=== PATIENT | female | born 1940 | race Caucasian/White ===

== ENCOUNTER → 2023-12-26 08:50 | Outpatient (REF) | payer MEDICARE, SELFPAY | LOC: RAD 08:50 | PROVIDERS: ATTENDING PHYSICIAN Surgery Vascular Surgery; FAMILY PHYSICIAN Family Medicine | DX: I73.9 Peripheral vascular disease, unspecified (principal) | CPT/HCPCS: 93923; 93978 ==

== ENCOUNTER → 2024-01-21 13:41 | Outpatient (REF) | payer MEDICARE, SELFPAY | LOC: HWRAD 13:41 | PROVIDERS: ATTENDING PHYSICIAN Nurse Practitioner; FAMILY PHYSICIAN Family Medicine | DX: N39.0 Urinary tract infection, site not specified (principal) | CPT/HCPCS: 76770; 76856 ==

== ENCOUNTER 2024-06-15 06:18 | Day surgery (SDC) | payer MEDICARE, SELFPAY ==
[2024-06-08 08:26] VITALS: BMI 28.7
[2024-06-08 08:50] LABS: Hematocrit 40.5 % (37.0-47.0); Mean Corp Hgb Conc. 32.1 g/dL (33.0-37.0); Mean Corpuscular Hgb 27.3 pg (27.0-31.0); Mean Corpuscular Volume 85.1 fL (81.0-99.0); Mean Platelet Volume 10.2 fL (7.4-10.4); Platelet Count 207 10^3/uL (130-400); Red Blood Cell Count 4.76 10^6/uL (4.20-5.40); Red Cell Dist. Width 15.9 % (11.5-14.5); White Blood Cell Count 11.1 10^3/uL (4.8-10.8)
[2024-06-08 09:26] LABS: Blood Urea Nitrogen 29 mg/dl (7-17); Calcium 9.3 mg/dl (8.4-10.2); Carbon Dioxide 31 mmol/L (22-30); Chloride 99 mmol/L (98-107); Estimated Creatinine Clearance 39 ml/min; Glucose 79 mg/dl (70-99); Potassium 4.4 mmol/L (3.5-5.1); Sodium 141 mmol/L (135-145)
--- NOTE | 2024-06-11 10:25 | PTCARENOTE ---
Patients 06/08 eGFR- 55.90- Luana @ Dr. Finley office notified
[2024-06-15] VITALS (10 sets, daily range): BP systolic 94–148; BP diastolic 39–59; BMI 28.7
[2024-06-15] MEDS: Pyridium 200 MG PO (06:08)
== END 2024-06-15 10:30 | disposition home or self-care (01) ==
LOC: SDS 06:18
PROVIDERS: ATTENDING PHYSICIAN Obstetrics & Gynecology; FAMILY PHYSICIAN Family Medicine
DX: N39.3 Stress incontinence (female) (male) (principal); N36.41 Hypermobility of urethra
CPT/HCPCS: 57288; 36415; 80048; 85027; 93005; C1771

== ENCOUNTER 2024-07-05 12:13 | Inpatient (IN) | payer MEDICARE, SELFPAY ==
[2024-07-05] VITALS (18 sets, daily range): BP systolic 101–141; BP diastolic 45–80; BMI 29.2
--- NOTE | 2024-07-05 08:46 | ED.GENMED ---
History of Present Illness
<Lissa Hays MD, Resident - Last Filed: 07/05/24 10:04>
General
Chief Complaint: Fall
Source: patient
Exam Limitations: none
Time Seen by Provider: 07/05/24 08:16
Nursing documentation reviewed up to this point in time: agreed with
Travel History
Have you traveled to any high risk areas for coronavirus over the past 14 days?: No
Have you had any contact with someone who has COVID-19?: No
History of Present Illness
History of Present Illness:
84-year-old female with past medical history significant for hypertension, hyperlipidemia, peripheral artery disease s/p PCI, stress incontinence s/p recent sling procedure done, interstitial cystitis and bladder prolapse presents to the ER s/p
mechanical fall. Patient woke up in the morning from her bed to go use the bathroom when she tripped and fell injuring the back of her head and right hip/thigh. She was not able to pull herself back up, and called her family for help. Currently
patient complains of severe right hip pain radiating into her groin, and inability to move her right leg. She denies any loss of consciousness or preceding symptoms, or did not have post ictal phase he was awake and alert during the entire fall and
after the fall. She denies having any chest pain, palpitations, shortness of breath, loss of consciousness, orthopnea, PND, bowel or bladder incontinence episode.
If applicable-neuro sx onset
Onset of symptoms known: No
Time pt last seen normal is known: No
Past History
<Lissa Hays MD, Resident - Last Filed: 07/05/24 10:04>
Past History
ED Past Medical History: HTN, Hypercholesterolemia and Other (PAD, stress incontinence, bladder prolapse, interstitial cystitis, anxiety, cataracts.)
ED Past Surgical History: Other (Left common iliac PCI 07/2017, tonsillectomy-194, left ankle fixation with plates and pins 1993, cataract surgery 2012)
Patient has exhibited threatening behavior?: No
PSI?: No
Social History
Tobacco: Non-smoker
Alcohol: Occasional
Drug: None
Living: alone
Employment: Retired
Family History
Family History: Other
Review of Systems
<Lissa Hays MD, Resident - Last Filed: 07/05/24 10:04>
Review of Systems
Allergies reviewed?: Yes
Constitutional: Reports no symptoms
EENT: Reports no symptoms
Respiratory: Reports no symptoms
Cardiac: Reports no symptoms
ABD/GI: Reports no symptoms
: Reports incontinence (Improving status post sling surgery x 2-week)
Musculoskeletal: Reports joint pain, joint swelling and other (Inability to move right leg, 10/10 cruciate and right hip pain)
Skin: Reports no symptoms
Neurological: Reports other (Contusion in the left occipital area.)
Endocrine: Reports no symptoms
Hematologic/Lymphatic: Reports no symptoms
Psychiatric: Reports no symptoms
Phy Exam
<Lissa Hays MD, Resident - Last Filed: 07/05/24 10:04>
General Physical Exam
General Presentation: no apparent distress
General Skin: warm
General Habitus: normal
General Mental: alert
General Hydration: appears well hydrated
Cardiovascular Exam
Cardiovascular Exam: regular rate/rhythm, no edema, no gallop, no murmur and normal peripheral pulses
Heart Sounds: normal
Pulmonary Exam
Pulmonary Exam: lungs clear, no respiratory distress, no rales, no crackles and no rhonchi
Gastrointestinal Exam
Gastrointestinal Exam: normal bowel sounds, non tender, soft, non distended and other (Suprapubic pressure on palpation, no CVA tenderness.)
Neurological Exam
Neurological Exam: alert, oriented x3, CN II-XII intact, no motor deficits and other
Musculoskeletal Exam
Musculoskeletal Exam: other (Right hip-edema noted, no bruising or ecchymosis, externally rotated, and severely limited range of motion.)
Course
<Lissa Hays MD, Resident - Last Filed: 07/05/24 10:04>
Orders/Labs/Results
Orders:
Orders
07/05/24 08:42
Vital Signs- Treatment ONCE
Frequency: Once
CR Hip - RT w/wo Pel 2-3 Vw* Urgent
Comment:
Reason For Exam: fall, unable to move right leg
Include a pelvis x-ray?: Yes
07/05/24 08:44
Ketorolac [Toradol] 15 mg IV NOW STA
CR Ribs-mila 3 Vw No Pa Chest Urgent
Comment:
Reason For Exam: fall
07/05/24 08:55
Complete Blood Count/With Diff Urgent
Comprehensive Metabolic Panel Urgent
PTT Urgent
Prothrombin Time Urgent
07/05/24 09:11
CT Cervical Spine W/o Iv Contr Urgent
Comment:
Reason For Exam: Fall
07/05/24 09:18
CT Head W/o Iv Contrast Urgent
Comment:
Reason For Exam: fall
07/05/24 09:45
Electrocardiogram (*1) Urgent
Reason for Study: Fatigue / Weakness
EKG- Treatment ONCE
07/05/24 09:57
HYDROmorphone [Dilaudid] 0.5 mg IV NOW STA
07/05/24 09:59
Consult Orthopedic [ORTHOPEDIC CONSULT] Routine
Consulting Provider: Demetri Pena
Was physician already notified: Yes
Reason for consult: Intertrochanteric fracture of right femur, displaced
Abnormal Lab Results
07/05/24
08:55
WBC 14.8 H 10^3/uL
(4.8-10.8)
RDW 16.4 H %
(11.5-14.5)
Abs Immat Gran (auto) 0.2 H 10^3/uL
(0-0.05)
Absolute Neuts (auto) 12.1 H 10^3/uL
(1.4-6.5)
Absolute Monos (auto) 0.7 H 10^3/uL
(0.1-0.6)
Immature Gran % 1.1 H %
(0-0.5)
Neutrophils % 81.6 H %
(42.2-75.2)
Lymphocytes % 11.8 L %
(20.5-51.1)
BUN 33 H mg/dl
(7-17)
Total Protein 6.0 L g/dl
(6.3-8.2)
07/05/24 08:55
07/05/24 08:55
Vital Signs
Initial and Last Documented VS:
Initial Vital Signs
Temp Pulse Resp BP Pulse Ox
97.5 F 63 16 107/80 98
07/05/24 08:29 07/05/24 08:29 07/05/24 08:29 07/05/24 08:29 07/05/24 08:29
Last Documented Vital Signs
Temp Pulse Resp BP Pulse Ox
97.5 F 63 16 107/80 98
07/05/24 08:29 07/05/24 08:29 07/05/24 08:29 07/05/24 08:29 07/05/24 08:29
Comment
Comment:
Displaced intertrochanteric fracture of the right femur.
addison;Handy Maxwell DO - Last Filed: 07/05/24 09:47>
Orders/Labs/Results
Orders:
Orders
07/05/24 08:42
Vital Signs- Treatment ONCE
Frequency: Once
CR Hip - RT w/wo Pel 2-3 Vw* Urgent
Comment:
Reason For Exam: fall, unable to move right leg
Include a pelvis x-ray?: Yes
07/05/24 08:44
Ketorolac [Toradol] 15 mg IV NOW STA
CR Ribs-mila 3 Vw No Pa Chest Urgent
Comment:
Reason For Exam: fall
07/05/24 08:55
Complete Blood Count/With Diff Urgent
Comprehensive Metabolic Panel Urgent
PTT Urgent
Prothrombin Time Urgent
07/05/24 09:11
CT Cervical Spine W/o Iv Contr Urgent
Comment:
Reason For Exam: Fall
07/05/24 09:18
CT Head W/o Iv Contrast Urgent
Comment:
Reason For Exam: fall
07/05/24 09:45
Electrocardiogram (*1) Urgent
Reason for Study: Fatigue / Weakness
EKG- Treatment ONCE
07/05/24 09:57
HYDROmorphone [Dilaudid] 0.5 mg IV NOW STA
07/05/24 09:59
Consult Orthopedic [ORTHOPEDIC CONSULT] Routine
Consulting Provider: Demetri Pena
Was physician already notified: Yes
Reason for consult: Intertrochanteric fracture of right femur, displaced
Abnormal Lab Results
07/05/24
08:55
WBC 14.8 H 10^3/uL
(4.8-10.8)
RDW 16.4 H %
(11.5-14.5)
Abs Immat Gran (auto) 0.2 H 10^3/uL
(0-0.05)
Absolute Neuts (auto) 12.1 H 10^3/uL
(1.4-6.5)
Absolute Monos (auto) 0.7 H 10^3/uL
(0.1-0.6)
Immature Gran % 1.1 H %
(0-0.5)
Neutrophils % 81.6 H %
(42.2-75.2)
Lymphocytes % 11.8 L %
(20.5-51.1)
BUN 33 H mg/dl
(7-17)
Total Protein 6.0 L g/dl
(6.3-8.2)
07/05/24 08:55
07/05/24 08:55
Vital Signs
Initial and Last Documented VS:
Initial Vital Signs
Temp Pulse Resp BP Pulse Ox
97.5 F 63 16 107/80 98
07/05/24 08:29 07/05/24 08:29 07/05/24 08:29 07/05/24 08:29 07/05/24 08:29
Last Documented Vital Signs
Temp Pulse Resp BP Pulse Ox
97.5 F 63 16 107/80 98
07/05/24 08:29 07/05/24 08:29 07/05/24 08:29 07/05/24 08:29 07/05/24 08:29
<Lissa Hyas MD, Resident - Last Filed: 07/05/24 10:04>
MDM/Problems Addressed
Differential Diagnosis Includes:
Fracture of pelvis, femur.
MDM/Problems Addressed:
Pain is addressed with Toradol and Dilaudid.
<Lissa Hays MD, Resident - Last Filed: 07/05/24 10:04>
*Radiology
Radiology exam reviewed: preliminary read by ED provider and radiology read reviewed
*Pulse Oximetry
Patient hypoxic: no
*EKG
Interpreted by ED Provider?: NA
*Public Health Physician Interpretation
Rate: normal
Interpretation: normal
Rhythm: sinus
*Critical Care Note
Total Time (30-74mins, 75-104mins- exclusive of procedures): Not Applicable
ED Attending Note
<Lissa Hays MD, Resident - Last Filed: 07/05/24 10:04>
-
Portions of this chart may have been created with voice recognition software.� Occasional wrong word or��sound alike� substitutions may have occurred due to the inherent limitations of voice recognition software.
<Handy Maxwell DO - Last Filed: 07/05/24 09:47>
ED Attending Note
Patient seen and examined by attending physician: Yes
I performed the substantive portion of visit, reviewed & personally made and approve the management plan that is documented in note by myself or JOS.: Yes
ED Attending Note:
I agree with the residents note.
Patient suffered a fall while getting out of bed to go to the bathroom. She believes she tripped over her own feet but cannot recall exactly. Patient complaining of right hip pain. Questionable head strike.
General: Awake, Alert, Oriented X3. No acute distress.
Vitals: unremarkable
Head: Atraumatic
Eyes: Pupils equal, EOMI
Throat: Airway intact, no exudates
Neck: Trachea midline
Lungs: Clear and equal b/l
Heart: Regular rate, no murmurs
Abd: Soft, Nontender, No pulsatile mass
Neuro: Nonfocal
Skin: Warm, dry, no rash
Extremities: pulses equal b/l, no edema. Right lower extremity externally rotated and shortened. Significant pain with minimal movement.
Clinically have high suspicion for right hip fracture. Given possible head injury will obtain head an C-spine CT given her age. Patient will require hospitalization for surgical management of her hip fracture.
Discharge Plan
Departure
Patient Disposition: Admit
Date of Disposition: 07/05/24
Time of Disposition: 10:04
Admit to doctor: Scott Garza MD
Presentation/result/management discussed w/ accepting MD/DO: Hospitalist
Discharge Problem:
Displaced intertrochanteric fracture of right femur
Prescriptions:
No Action
multivitamin Tablet
1 tab PO DAILY
prednisone 5 mg Tablet
7 mg PO DAILY
methenamine hippurate 1 gram Tablet
1 g PO BID
methotrexate sodium [Methotrexate (Anti-Rheumatic)] 2.5 mg Tablet
7.5 mg PO .BIDONWEDNESDAYS
simvastatin 20 mg Tablet
20 mg PO QPM
lisinopril 10 mg Tablet
10 mg PO DAILY
sertraline 25 mg Tablet
25 mg PO HS
folic acid 1 mg Tablet
1 mg PO DAILY
calcium citrate-vitamin D3 [Citracal plus D] 250 mg-5 mcg (200 unit) Tablet
1 tab PO BID
Systane Complete 0.6 % Drops
1 drp OPHTHALMIC (EYE) BID PRN (Reason: dry eyes)
Hair, Skin, Nails with Biotin 7.5-7.5-1,250 mg-unit-mcg Tablet,Chewable
1 tab PO TID
mecobalamin (vitamin B12) [B12 Active] 1,000 mcg Tablet,Chewable
3,000 mcg PO BID
Fiber Gummies 2 gram Tablet,Chewable
4 g PO DAILY
aspirin 81 mg Capsule
81 mg PO DAILY
Referrals:
Ramy Garcia MD [Family Provider] -
Interventions
Interventions:
*Risk Screen - Suicide Last Done: 07/05/24 08:29
*General Assessment Last Done: 07/05/24 08:29
*Neglect/Abuse Screening Last Done: 07/05/24 08:29
ED- Fall Risk Assessment Last Done: 07/05/24 09:41
*ED COVID-19 Vaccine History Last Done: 07/05/24 09:40
ED-Musculoskeletal Assessment Last Done: 07/05/24 09:39
ED- Neurological Assessment Last Done: 07/05/24 09:39
ED-Skin Assessment Last Done: 07/05/24 09:39
Discharge Date and Time
Print Language: NEPALI
[2024-07-05] MEDS: TORADOL 15 MG IV (08:51)
[2024-07-05 09:14] LABS: % Basophils 0.3 % (0-2); % Eosinophils 0.4 % (0-6); % Immature Granulocytes 1.1 % (0-0.5); % Lymphocytes 11.8 % (20.5-51.1); % Monocytes 4.8 % (1.7-9.3); % Neutrophils 81.6 % (42.2-75.2); Absolute Basophils 0.1 10^3/uL (0-0.2); Absolute Eosinophils 0.1 10^3/uL (0-0.7); Absolute Immature Granulocytes 0.2 10^3/uL (0-0.05); Absolute Lymphocytes 1.8 10^3/uL (1.2-3.4); Absolute Monocytes 0.7 10^3/uL (0.1-0.6); Absolute Neutrophils 12.1 10^3/uL (1.4-6.5); Hematocrit 37.3 % (37.0-47.0); Hemoglobin 12.5 g/dL (12.0-16.0); Mean Corp Hgb Conc. 33.5 g/dL (33.0-37.0); Mean Corpuscular Hgb 28.3 pg (27.0-31.0); Mean Corpuscular Volume 84.4 fL (81.0-99.0); Mean Platelet Volume 10.1 fL (7.4-10.4); Nucleated Red Blood Cells % 0 %; Platelet Count 167 10^3/uL (130-400); Red Blood Cell Count 4.42 10^6/uL (4.20-5.40); Red Cell Dist. Width 16.4 % (11.5-14.5); White Blood Cell Count 14.8 10^3/uL (4.8-10.8)
[2024-07-05 09:20] LABS: APTT 23.5 Sec (23.4-35.0); INR 1.03
[2024-07-05 09:33] LABS: ALT (SGPT) 21 U/L (0-35); AST (SGOT) 27 U/L (14-36); Albumin 3.9 g/dl (3.5-5.0); Alkaline Phosphatase 68 U/L (38-126); Blood Urea Nitrogen 33 mg/dl (7-17); Calcium 9.3 mg/dl (8.4-10.2); Carbon Dioxide 27 mmol/L (22-30); Chloride 104 mmol/L (98-107); Glucose 96 mg/dl (70-99); Potassium 3.9 mmol/L (3.5-5.1); Sodium 143 mmol/L (135-145); Total Bilirubin 0.6 mg/dl (0.2-1.3); eGFR > 60.00
[2024-07-05] MEDS: DILAUDID 0.5 MG IV ×2 (10:09→13:05)
--- NOTE | 2024-07-05 11:16 | HPS.HSE ---
Family Physician
-
Family Physician: Ramy Garcia
Chief Complaint
-
fall resulting in R hip fx
History of Present Illness
84 y/o F with PMHx:
PMR
PAD
Essential hypertension
Presents after mechanical fall resulting in right hip fracture. The patient reports that this was solely a mechanical fall. Denies any symptoms prior to the fall. She has been in her usual state of health. Denies syncope. Currently denies chest
pain, shortness of breath, abdominal pain. Aside from pain related to her fracture she has no acute complaints. Patient also denies any history of chronic kidney disease or diabetes. Denies any history of coronary artery disease/myocardial
infarction or congestive heart failure. At baseline she is able to climb a flight of stairs without having to stop due to chest pain or shortness of breath.
Medical History
Past Medical History
Past Medical History: Reports Other (PMR PAD Essential hypertension)
Past Surgical History: Reports Other (iliac stent)
Social History
Tobacco: Non-smoker
Alcohol: Occasional
Drug: None
Family History
Family History: Not pertinent
Allergies / Home Medications
Allergies reflects when Allergies were last updated in [facility].
Home Medications with original date entered in [facility]
Allergy/Medication List:
Allergies
Allergy/AdvReac Type Severity Reaction Status Date / Time
Sulfa (Sulfonamide Allergy Hives Verified 07/05/24 08:33
Antibiotics)
Home Medications
ascorbic acid 7.5 mg-vit E 7.5 unit-biotin 1,250 mcg chewable tablet (Hair,Skin,Nails with Biotin) 1 tab PO TID Supplement 06/07/24
aspirin 81 mg capsule 81 mg PO DAILY Blood Clot Prevention/Tx 06/07/24
calcium 250 mg (as citrate)-vitamin D3 5 mcg (200 unit) tablet 1 tab PO BID Supplement 06/07/24
folic acid 1 mg tablet 1 mg PO DAILY Supplement 06/07/24
inulin 2 gram chewable tablet (Fiber Gummies) 4 g PO DAILY Supplement 06/07/24
lisinopril 10 mg tablet 10 mg PO DAILY Blood Pressure 06/07/24
methenamine hippurate 1 gram tablet 1 g PO BID Urinary Issue 06/07/24
methotrexate sodium 2.5 mg tablet 7.5 mg PO WE@0800,1700 Autoimmune Disorder 06/07/24
prednisone 5 mg tablet 5 mg PO DAILY Anti-Inflammatory 06/07/24
propylene glycol 0.6 % eye drops (Systane Complete) 1 drp BOTH EYES BID PRN dry eyes 06/07/24
sertraline 25 mg tablet 25 mg PO HS depression/anxiety 06/07/24
simvastatin 20 mg tablet 20 mg PO DAILY High Cholesterol 06/07/24
cyanocobalamin (vitamin B-12) 1,000 mcg tablet 1,000 mcg PO DAILY Supplement 07/05/24
estradiol 0.01% (0.1 mg/gram) vaginal cream 1 appful vaginal SUTH Hormonal Agent 07/05/24
multivitamin-ferrous fumarate-folic acid 18 mg-400 mcg tablet (Centrum Women) 1 tab PO DAILY Supplement 07/05/24
prednisone 1 mg tablet 2 mg PO DAILY Anti-Inflammatory 07/05/24
Review of Systems
-
History Source: Patient
A 12 point ROS was completed and negative except as noted: Yes
Physical Exam
Vital Signs
Vital Signs
Temp Pulse Resp BP Pulse Ox
97.5 F 63 16 141/48 100
07/05/24 08:29 07/05/24 08:29 07/05/24 08:29 07/05/24 11:00 07/05/24 11:00
Physical Exam
General: Other (.)
Laboratory Results
-
07/05/24 08:55
07/05/24 08:55
Laboratory Results
PT 14.0 Sec (11.4-14.6) 07/05/24 08:55
INR 1.03 07/05/24 08:55
APTT 23.5 Sec (23.4-35.0) 07/05/24 08:55
Total Bilirubin 0.6 mg/dl (0.2-1.3) 07/05/24 08:55
AST 27 U/L (14-36) 07/05/24 08:55
ALT 21 U/L (0-35) 07/05/24 08:55
Alkaline Phosphatase 68 U/L (38-126) 07/05/24 08:55
Impression/Plan
-
Gen: NAD, AAOx3.
Eyes: EOMI, PERRLA, no scleral icterus.
Neck: supple.
CV: RRR, +S1/S2, no m/r/g.
Resp: CTAB, no rales, wheezes, or rhonchi.
Abd: +BS, soft, NT, ND
Skin: No rashes.
Neuro: CN 2-12 intact, non-focal.
Psych: Normal mood and affect.
Acute R hip fx:
-case discussed with Dr. Pena, plan for OR 2-3PM today.
-Regarding perioperative cardiovascular risk assessment for noncardiac surgery, this patient is low risk. The benefit of surgery greatly outweighs this low risk. The patient is medically optimized for surgery and does not need any further
preoperative cardiac testing. Of note the patient had an ECG (which in this case was actually unnecessary). The ECG was reviewed by me, NSR @ 66, nl axis/intervals, no acute ST/TW changes.
-case discussed with Dr. Pena and he will order post-op DVT proph
PMR: cont home meds of MTX/Prednisone. Should the pt develop post-op hypotension recommend stress dose steroids.
HLD: cont statin
Essential HTN: Cont ACEi
FULL code
--- NOTE | 2024-07-05 12:09 | CON.ORTHO ---
Documented by User: Bharti Norwood PA-C 07/05/24 12:17
Consultation
-
Date/Time Consultation Requested: 07/05/2024; time unknown
Date/Time Consultation Performed: 07/05/2024; 1200
Requesting Provider: unknown
Performing Provider: Dr. Demetri Pena / Bharti Norwood PA-C
Reason for Consultation: Right hip fracture
Consultation - Orthopedics
History
Ms. Wiggins is an 84-year-old female with past medical history significant for hypertension, hyperlipidemia, peripheral artery disease s/p PCI, stress incontinence s/p recent sling procedure done, interstitial cystitis and bladder prolapse seen today
for her right hip. Her son is at the bedside. She reports she got out of bed this morning to use the restroom, and lost her balance. This resulted in her falling onto her right side. She experienced immediate onset of pain in the hip. She was able
to sit up, but was unable to get up off the floor. She presented to ED via EMS where x-rays revealed an intertrochanteric femur fracture. She reports aching pain in the hip, but states her symptoms are controlled at present. She reports some
radicular symptoms initially following the fall, but states these have subsided.
She lives independently, and typically ambulates without assistance. She does not take any daily blood thinners. She denies known history of difficulty with anesthesia.
Allergies / Home Medications
Allergy/AdvReac Type Severity Reaction Status Date / Time
Sulfa (Sulfonamide Allergy Hives Verified 07/05/24 08:33
Antibiotics)
�Medication �Instructions �Recorded
ascorbic acid 7.5 mg-vit E 7.5 1 tab PO TID Supplement 06/07/24
unit-biotin 1,250 mcg chewable
tablet (Hair,Skin,Nails with
Biotin)
aspirin 81 mg capsule 81 mg PO DAILY Blood Clot 06/07/24
Prevention/Tx
calcium 250 mg (as 1 tab PO BID Supplement 06/07/24
citrate)-vitamin D3 5 mcg (200
unit) tablet
folic acid 1 mg tablet 1 mg PO DAILY Supplement 06/07/24
inulin 2 gram chewable tablet 4 g PO DAILY Supplement 06/07/24
(Fiber Gummies)
lisinopril 10 mg tablet 10 mg PO DAILY Blood Pressure 06/07/24
methenamine hippurate 1 gram tablet 1 g PO BID Urinary Issue 06/07/24
methotrexate sodium 2.5 mg tablet 7.5 mg PO WE@0800,1700 Autoimmune 06/07/24
Disorder
prednisone 5 mg tablet 5 mg PO DAILY Anti-Inflammatory 06/07/24
propylene glycol 0.6 % eye drops 1 drp BOTH EYES BID PRN dry eyes 06/07/24
(Systane Complete)
sertraline 25 mg tablet 25 mg PO HS depression/anxiety 06/07/24
simvastatin 20 mg tablet 20 mg PO DAILY High Cholesterol 06/07/24
cyanocobalamin (vitamin B-12) 1,000 mcg PO DAILY Supplement 07/05/24
1,000 mcg tablet
estradiol 0.01% (0.1 mg/gram) 1 appful vaginal SUTH Hormonal 07/05/24
vaginal cream Agent
multivitamin-ferrous 1 tab PO DAILY Supplement 07/05/24
fumarate-folic acid 18 mg-400 mcg
tablet (Centrum Women)
prednisone 1 mg tablet 2 mg PO DAILY Anti-Inflammatory 07/05/24
Vital Signs / Lab Results
Temp Pulse Resp BP Pulse Ox
97.5 F 63 16 141/48 100
07/05/24 08:29 07/05/24 08:29 07/05/24 08:29 07/05/24 11:00 07/05/24 11:00
07/05/24 08:55
07/05/24 08:55
XR Right Hip 07/05/2024 IMPRESSION:
RIGHT hip intertrochanteric fracture.
Directed exam of the right lower extremity reveals no obvious erythema, ecchymosis or lesions. Tenderness to palpation over the anterior and lateral hip. Thigh soft and compressible. ROM deferred secondary to known fracture. Positive log roll. Calf
soft and nontender. Patient able to wiggle toes, plantar and dorsiflex ankle. Neurovascularly intact distally.
Assessment / Plan
Right intertrochanteric femur fracture
--Unfortunately, Jose sustained a right intertrochanteric femur fracture in her fall. I recommend proceeding with a right hip cephalomedullary nail. The risks, benefits, alternatives, recovery process and potential complications were discussed in
detail. She would like to proceed with surgical intervention of her fracture. We will plan to proceed with surgery this afternoon under the direction of Dr. Pena. Surgical and blood consents are signed and scanned into patient chart. Paper copy
at OR desk. Patient optimized for surgery per medicine.
--NPO until surgery.
--NWB to RLE until surgery.
--T+S pending.
--Antibiotics ordered to OR.
--Pain control prn.
--Please reach out with any additional orthopedic questions or concerns.

Documented by User: Demetri Pena MD 07/05/24 14:06
Consultation - Orthopedics
History
Patient seen and evaluated by Demetri Pena MD.
Ms. Wiggins is an 84-year-old female with past medical history significant for hypertension, hyperlipidemia, peripheral artery disease s/p PCI, stress incontinence s/p recent sling procedure done, interstitial cystitis and bladder prolapse seen today
for her right hip. Her son is at the bedside. She reports she got out of bed this morning to use the restroom, and lost her balance. This resulted in her falling onto her right side. She experienced immediate onset of pain in the hip. She was able
to sit up, but was unable to get up off the floor. She presented to ED via EMS where x-rays revealed an intertrochanteric femur fracture. She reports aching pain in the hip, but states her symptoms are controlled at present. She reports some
radicular symptoms initially following the fall, but states these have subsided.
She lives independently, and typically ambulates without assistance. She does not take any daily blood thinners. She denies known history of difficulty with anesthesia.
Assessment / Plan
Right intertrochanteric femur fracture
--Unfortunately, Jose sustained a right intertrochanteric femur fracture in her fall. I recommend proceeding with a right hip cephalomedullary nail. The risks, benefits, alternatives, recovery process and potential complications were discussed in
detail. She would like to proceed with surgical intervention of her fracture. We will plan to proceed with surgery this afternoon under the direction of Dr. Pena. Surgical and blood consents are signed and scanned into patient chart.
Preoperative note completed by Dr. Pena, surgical site marked by Dr. Pena. Risks, benefits, and possible complications of the procedure were discussed. Patient questions answered as well as son (Cheng's) questions answered. Paper copy at OR
desk. Patient optimized for surgery per medicine.
--NPO until surgery.
--NWB to RLE until surgery.
--T+S pending.
--Antibiotics ordered to OR.
--Pain control prn.
--Please reach out with any additional orthopedic questions or concerns.
[2024-07-05 19:00] LABS: Hematocrit 35.9 % (37.0-47.0); Hemoglobin 11.8 g/dL (12.0-16.0)
[2024-07-05 19:18] LABS: Blood Urea Nitrogen 35 mg/dl (7-17); Calcium 8.7 mg/dl (8.4-10.2); Carbon Dioxide 25 mmol/L (22-30); Chloride 106 mmol/L (98-107); Estimated Creatinine Clearance 41 ml/min; Glucose 123 mg/dl (70-99); Potassium 4.6 mmol/L (3.5-5.1); Sodium 142 mmol/L (135-145)
[2024-07-05] MEDS: NSS 1000 IV (20:45)
[2024-07-05] MEDS: ASPIRIN 325 MG PO (20:52)
[2024-07-05] MEDS: LIPITOR 10 MG PO (20:52)
[2024-07-05] MEDS: ZESTRIL 10 MG PO (20:52)
[2024-07-05] MEDS: SENOKOT 17.2 MG PO (20:52)
[2024-07-05] MEDS: VITAMIN B-12 1000 MCG PO (20:53)
[2024-07-05] MEDS: FOLVITE 1 MG PO (20:53)
[2024-07-05] MEDS: TYLENOL 650 MG PO (20:53)
[2024-07-05] MEDS: OSCAL 500 + D 500 MG PO (20:53)
[2024-07-05] MEDS: THERAGRAN 1 TABLET PO (20:53)
[2024-07-05] MEDS: COLACE 100 MG PO (20:54)
[2024-07-05] MEDS: ZOLOFT 25 MG PO (22:31)
[2024-07-05] MEDS: ROXICODONE 5 MG PO (22:31)
[2024-07-05] MEDS: ANCEF 5 IV (22:31)
--- NOTE | 2024-07-05 23:52 | PTCARENOTE ---
19:40 pt rec'vd from ACU, right hip dressings x3 all noted with small amount of drainage mid of Aquacel. IVF infusing, pt arrived with family at the bedside, pt oriented to unit.
[2024-07-06] VITALS (7 sets, daily range): BP systolic 104–139; BP diastolic 45–67; PULSE 89–94; O2SAT 99–100
[2024-07-06] MEDS: TYLENOL PO (00:30)
[2024-07-06] MEDS: TYLENOL 650 MG PO ×5 (04:30→20:05)
[2024-07-06 05:37] LABS: Mean Corp Hgb Conc. 32.3 g/dL (33.0-37.0); Mean Corpuscular Hgb 28.6 pg (27.0-31.0); Mean Corpuscular Volume 88.6 fL (81.0-99.0); Mean Platelet Volume 10.3 fL (7.4-10.4); Platelet Count 139 10^3/uL (130-400); Red Cell Dist. Width 16.9 % (11.5-14.5); White Blood Cell Count 10.9 10^3/uL (4.8-10.8)
[2024-07-06 05:58] LABS: Blood Urea Nitrogen 34 mg/dl (7-17); Calcium 8.4 mg/dl (8.4-10.2); Carbon Dioxide 26 mmol/L (22-30); Chloride 105 mmol/L (98-107); Estimated Creatinine Clearance 41 ml/min; Glucose 130 mg/dl (70-99); Potassium 4.7 mmol/L (3.5-5.1); Sodium 138 mmol/L (135-145)
[2024-07-06] MEDS: ANCEF 5 IV (06:12)
--- NOTE | 2024-07-06 06:41 | W.PN.ORTHO ---
Today's Communication / Plan
-
84-year-old female POD 1 Right hip gamma nail 07/05/[address] Pena.
- PWB RLE with use of walker for assistance.
- ASA 325mg once daily x 4 weeks for DVT prophylaxis.
- PT/OT.
- Hgb 10.0 this AM. Continue to monitor and trend.
- Pain control per primary team.
- Orthopedic surgery will continue to follow along.
Assessment
.
Distal Motor Intact: Yes
Dressing:
Aquacel dressings intact to RLE.
Calf is soft and nontender to palpation.
Able to plantarflex and dorsiflex ankle. NVI distally.
Assessment:
Right Hip Gamma Nail 07/05 Dr. Pena.
Plan
.
Surgery / Date: 07/05/2024 Right Hip Gamma Nail Becky
DVT Prophylaxis: Aspirin
Activity:
Out of bed.
PT/OT
Discharge Plan: Other
Discharge Information:
Appreciate CM
Subjective
.
.:
Patient resting comfortably in bed.
Vital Signs and Labs
.
Vital Signs and Labs:
Lab Results
07/06/24 04:47
07/06/24 04:47
Temp Pulse Resp BP Pulse Ox
98.2 F 95 16 119/58 97
07/06/24 03:02 07/06/24 03:02 07/06/24 03:02 07/06/24 03:02 07/06/24 03:02
PT 14.0 Sec (11.4-14.6) 07/05/24 08:55
INR 1.03 07/05/24 08:55
[2024-07-06] MEDS: OSCAL 500 + D 500 MG PO ×2 (08:36→20:05)
[2024-07-06] MEDS: FIBERCON 1250 MG PO (08:36)
[2024-07-06] MEDS: LIPITOR 10 MG PO (08:36)
[2024-07-06] MEDS: COLACE 100 MG PO ×2 (08:36→20:05)
[2024-07-06] MEDS: DELTASONE 2 MG PO (08:36)
[2024-07-06] MEDS: ASPIRIN 325 MG PO (08:36)
[2024-07-06] MEDS: VITAMIN B-12 1000 MCG PO (08:37)
[2024-07-06] MEDS: SENOKOT 17.2 MG PO ×2 (08:37→20:05)
[2024-07-06] MEDS: THERAGRAN 1 TABLET PO (08:37)
[2024-07-06] MEDS: DELTASONE 5 MG PO (08:38)
[2024-07-06] MEDS: FOLVITE 1 MG PO (08:38)
[2024-07-06] MEDS: ZESTRIL PO (08:44)
--- NOTE | 2024-07-06 09:33 | W.PN.UPDATE ---
Update Note
Progress Note Update
Gen: NAD, AAOx3.
Eyes: EOMI, PERRLA, no scleral icterus.
Neck: supple.
CV: remains RRR, +S1/S2, no m/r/g.
Resp: CTAB anteriorly, no rales, wheezes, or rhonchi.
Abd: remains +BS, soft, NT, ND
Skin: No rashes.
Neuro: remains CN 2-12 intact, non-focal.
Psych: Normal mood and affect.
Acute R hip fx:
-s/p Right hip gamma nail on 07/05/2024
-pain control
-PT/OT
Other problems:
Leukocytosis, likely reactive, improving
Acute blood loss anemia due to surgery: Trend Hb
PMR: cont home meds of MTX/Prednisone. Should the pt develop post-op hypotension recommend stress dose steroids.
HLD: cont statin
Essential HTN: Cont ACEi
FULL/ASA
[2024-07-06] MEDS: NSS 1000 IV (11:18)
--- NOTE | 2024-07-06 11:51 | W.PN.HOSP.TC ---
Today's Communication/Plan
-
Continue to monitor Labs. Pain Control. Potential Discharge tomorrow.
Assessment / Plan
Assessment / Plan
84 year old female POD #1 s/p R Hip Gamma Nail
1. Acute R Hip Fx
- POD#1 R Hip Gamma Nail
- Pain Control
- PT/OT as cornelio
2. Acute Blood Loss Anemia 2/2 Orthopedic Procedure
- Hb 12.5 (pre-op) --> 10.0 today
- Asymptomatic
- Continue to monitor CBC for resolution.
3. Leukocytosis
- Improvin.8 (yesterday) --> 10.9 (today)
- Likely reactive/stress related
- Continue to monitor for resolution.
4. Polymyalgia Rheumatica
- Continue Home Meds
- Consider stress dose steroids for hypotension
5. HTN
- Continue Home Meds
6. HLD
- Continue Home Meds
7. DVT PPx
- ASA x 4 weeks per ortho
Anticipated Discharge: Within 24 hours
Subjective/Interval History
-
Date of Service: July 06, 2024
Objective Data
-
Labs:
Laboratory Results
07/06/24
04:47
WBC 10.9 H
Hgb 10.0 L
Hct 31.0 L
Plt Count 139
Sodium 138
Potassium 4.7
Chloride 105
Carbon Dioxide 26
BUN 34 H
Creatinine 1.0
Glucose 130 H
Calcium 8.4
Vital Signs:
Vital Signs
Temp Pulse Resp BP Pulse Ox
97.8 F 91 18 137/60 99
07/06/24 11:41 07/06/24 11:41 07/06/24 11:41 07/06/24 11:41 07/06/24 07:30
I&O
07/05/24 07/06/24 07/07/24
06:59 06:59 06:59
Intake Total 2189
Balance 2189
Review of Systems
-
History Source: Patient
All other systems: Reviewed and negative
Physical Exam
-
General: No Apparent Distress
HEENT: Normocephalic and Atraumatic
Respiratory: Clear to Auscultation
Cardiac: Regular Rhythm and S1/S2
Musculoskeletal: Other (dressings intact)
Skin: Warm and Dry
Neuro: Awake, Alert and AO x 3
Psych: Calm
Data Reviewed
-
Labs: Labs Reviewed by me
--- NOTE | 2024-07-06 12:28 | CM ---
Addendum entered by Juany Roman 07/06/24 17:23:
tt resident for order PM&R consult
PT/OT rec acute rehab. Spoke with patient/family options
[facility] referral sent in [facility]
Spoke with Edgar Harris at [facility] insurance for authorization [phone]
Reference # [id number]
Faxed clinicals to [facility] at [phone]
PLAN: Await approval for acute rehab
Original Note:
Patient seen at bedside
IA completed.
PT/OT to eval
Lives alone in a 1 story home with 2 steps to enter.
PLOF: ambulating without AD, driving
DME: was her - walker, wheelchair
PLAN: Await PT/OT evals, CM will need to obtain insurance authorization
--- NOTE | 2024-07-06 17:30 | CON.MD ---
Documented by User: Annelise Choi PA-C 07/06/24 19:44
Consultation - Medical
-
Referring Provider: Alphonso Thompson
Chief Complaint: Ambulatory dysfunction status post right hip surgery
History of Present Illness: 84-year-old female with PMH of (hypertension, hyperlipidemia, peripheral artery disease s/p PCI, stress incontinence s/p recent sling procedure , interstitial cystitis and bladder prolapse) presented to the ER on 07/05
due to a mechanical fall due to her foot getting caught in the sheets while getting out of bed to use the bathroom. She injured the back of her head and right hip/thigh. She was not able to get back up and called her family for help. Xray of the
hip showed
Past Medical History: hypertension, hyperlipidemia, peripheral artery disease s/p PCI, stress incontinence s/p recent sling procedure , interstitial cystitis and bladder prolapse
Procedure History: Right hip gamma nail(07/05), Left ankle fixation�94, cataract surgery�2011
Family History: not pertinent
Social History:
Functional Level Premorbidly: Independent with all activities
Functional Level Currently: Eating�modified independence, grooming�supervision, toileting�min assist, lower extremity self-care�mod assist,Transfer sit to stand�min assist, stand to sit�min assist, stand/pivot�not tested, blood bank assistant needed for lift
off and balance , static supported standing- min assist, Ambulate 15 feet x 2 with rolling walker and min assist, therapist navigating IV pole
Tobacco: Denies
Alcohol: Denies
Drug use: Denies
Lives with: Alone
24-hour assistance available: No, can ask sons if needs assistance
Number of floors: one story with 2 steps to family room and 2 step to kitchen, 2 steps down into sunroom
# steps to enter: 2
# steps to second floor:>2 steps up to main level, including bedroom
Potential First floor set up:
Driving: Yes
Occupation: retired
Allergies:
Allergy/AdvReac Type Severity Reaction Status Date / Time
Sulfa (Sulfonamide Allergy Hives Verified 07/05/24 08:33
Antibiotics)
Review of Systems:
Constitutional: (x) Normal _
Eye: (x) Normal _
Ear/Nose/Throat: (x) Normal _
Respiratory: (x) Normal _
Cardiovascular: (x) Normal _
Gastrointestinal: (x) Normal _
Genitourinary: (x) Normal _
Musculoskeletal: (x) right hip pain, fracture s/p ORIF
Integumentary: (x) Normal _
Neurologic: (x) Normal _
Psychiatric: (x) Normal _
Endocrine: (x) polymyalgia rheumatica
Hematologic/Lymphatic: (x) Normal _
Allergic/Immunologic: (x) Normal _
Medications:
Active Current Visit Medication List
Category Date Time Status
0.9% Sodium Chloride 1000 ml [Nss] 1,000 ml Med 07/05/24 16:15 Active
IV 80 mls/hr
Acetaminophen [Tylenol] Med 07/05/24 18:26 Active
650 mg PO Q4HWA
Artificial Tears (Pf) [Refresh Eye Drops (Pf)] Med 07/05/24 19:30 Active
1 drops BOTH EYES BIDPRN PRN
Aspirin Med 07/05/24 18:00 Active
325 mg PO DAILY
Atorvastatin [Lipitor] Med 07/05/24 19:30 Active
10 mg PO DAILY
Calcium Carbonate/Vitamin D3 [Oscal 500 + D] Med 07/05/24 20:00 Active
500 mg PO BID
Calcium Polycarbophil [Fibercon] Med 07/06/24 08:00 Active
1,250 mg PO DAILY
Cyanocobalamin [Vitamin B-12] Med 07/05/24 18:26 Active
1,000 mcg PO DAILY
Docusate Sodium [Colace] Med 07/05/24 20:00 Active
100 mg PO BID
FOLic ACID [Folvite] Med 07/05/24 18:26 Active
1 mg PO DAILY
Flush (0.9% Sodium Chloride) [Flush (Nss)] Med 07/05/24 17:00 Active
See Dose Instructions IV PER PROTOCOL
HYDROmorphone [Dilaudid] Med 07/05/24 12:52 Active
0.5 mg IV Q1HPRN PRN
Lisinopril [Zestril] Med 07/05/24 18:26 Active
10 mg PO DAILY
Mag Hydrox/Al Hydrox/Simeth [Maalox] Med 07/05/24 16:10 Active
30 ml PO Q4HPRN PRN
Magnesium Hydroxide [Milk of Magnesia] Med 07/05/24 18:26 Active
30 ml PO DAILYPRN PRN
Magnesium Hydroxide [Milk of Magnesia] Med 07/05/24 16:10 Active
30 ml PO [id number] PRN
Multivitamin [Theragran] Med 07/05/24 19:00 Active
1 tablet PO DAILY
Ondansetron Injectable [Zofran] Med 07/05/24 16:10 Active
4 mg IV Q6HPRN PRN
Oxycodone [Roxicodone] Med 07/05/24 16:10 Active
10 mg PO Q4HPRN PRN
Oxycodone [Roxicodone] Med 07/05/24 16:10 Active
5 mg PO Q4HPRN PRN
Oxycodone [Roxicodone] Med 07/05/24 18:26 Active
5 mg PO Q4HPRN PRN
Prednisone [Deltasone] Med 07/06/24 08:00 Active
2 mg PO DAILY
Prednisone [Deltasone] Med 07/06/24 08:00 Active
5 mg PO DAILY
Sennosides [Senokot] Med 07/05/24 20:00 Active
17.2 mg PO BID
Sertraline HCl [Zoloft] Med 07/05/24 22:00 Active
25 mg PO HS
Tamsulosin [Flomax] Med 07/05/24 18:26 Active
0.4 mg PO DAILYPRN PRN
Vitals:
Temp Pulse Resp BP Pulse Ox
98.1 F 83 20 121/67 99
07/06/24 15:28 07/06/24 15:28 07/06/24 15:28 07/06/24 15:28 07/06/24 07:30
Height 5 ft 3 in
Actual Weight 74.7 kg
Body Mass Index (BMI) 29.2
Physical Exam:
General Appearance/Observation: Well-developed, well-nourished individual in no apparent distress.
Pain/Comfort Assessment: right hip
Mood/Affect: Appropriate
Integumentary/Operative Site: right hip incision with blood stained dressing and another dressing above the knee
Pressure Ulcer Evaluation: not visualized due to Teds stockings
Eyes: Conjunctiva/Lids: normal Pupils: pupils equal round and reactive to light and Accommodation
Ears/Nose/Throat: oral mucosa moist, throat clear. Lips/Teeth/Gums: normal
Neck: No muscle spasm or tenderness
Cardiovascular: Heart: regular, no murmur
Pulses: dorsalis pedis 2+ bilaterally
Respiratory: Respiratory Effort/Chest Expansion: normal Auscultation: Clear to auscultation bilaterally
Gastrointestinal: abdomen not tender, no distension, normal abdominal bowel sounds
Extremities: Edema: None Cyanosis: None Trophic changes: None
Neurology Exam:
Orientation: Alert, Oriented to self, Time, Place
Memory: Intact for immediate Medical concerns
Comprehension: Intact
Two step command: Intact
Naming: Intact
Cranial Nerves:
CNII: Pupillary light reflex: Intact Visual Field: NT
CN III, IV, : Extraocular muscles: Intact
CN V: Facial Sensation at Forehead: Intact, Maxilla: Intact, Mandible: Intact
CN VII: Facial movement: Symmetric
CN VIII: Hearing: Normal
CN IX/X: Speech & swallow: Normal, Position of Uvula: Midline
CN XI: Shoulder shrug: Symmetric
CN XII: Tongue protrusion: Midline
Sensory:
Light touch: Intact in bilateral upper and lower extremities
Reflexes:
Biceps: 2+ bilaterally
Brachioradialis: 2+ bilaterally
Triceps: 2+ bilaterally
Patellar: 2+ bilaterally
Achilles: trace bilaterally
Babinski: Down going bilaterally
Clonus: NT
Ankit: Negative bilaterally
Cerebellar: Dysmetria/Ataxia: None
Musculoskeletal:
Motor: (Manual muscle scale 0-5)
Muscle: Motor: (Manual muscle scale 0-5)��
Muscle SA EF WE EE FF FA HF KE DF EHL PF
Right� 5 5 5 5 5 5 5 5 5
Left 5 5 5 5 *2 *2 5 5 5
�
* pain in the groin.
Tone: Normal in all extremities
Range of Motion: Passively within normal limits in all extremities, except right hip due to surgery
Lab Results
Labs
WBC 10.9 10^3/uL (4.8-10.8) H 07/06/24 04:47
RBC 3.50 10^6/uL (4.20-5.40) L 07/06/24 04:47
Hgb 10.0 g/dL (12.0-16.0) L 07/06/24 04:47
Hct 31.0 % (37.0-47.0) L 07/06/24 04:47
MCV 88.6 fL (81.0-99.0) 07/06/24 04:47
MCH 28.6 pg (27.0-31.0) 07/06/24 04:47
MCHC 32.3 g/dL (33.0-37.0) L 07/06/24 04:47
RDW 16.9 % (11.5-14.5) H 07/06/24 04:47
Plt Count 139 10^3/uL (130-400) 07/06/24 04:47
MPV 10.3 fL (7.4-10.4) 07/06/24 04:47
Abs Immat Gran (auto) 0.2 10^3/uL (0-0.05) H 07/05/24 08:55
Absolute Neuts (auto) 12.1 10^3/uL (1.4-6.5) H 07/05/24 08:55
Absolute Lymphs (auto) 1.8 10^3/uL (1.2-3.4) 07/05/24 08:55
Absolute Monos (auto) 0.7 10^3/uL (0.1-0.6) H 07/05/24 08:55
Absolute Eos (auto) 0.1 10^3/uL (0-0.7) 07/05/24 08:55
Absolute Basos (auto) 0.1 10^3/uL (0-0.2) 07/05/24 08:55
Immature Gran % 1.1 % (0-0.5) H 07/05/24 08:55
Neutrophils % 81.6 % (42.2-75.2) H 07/05/24 08:55
Lymphocytes % 11.8 % (20.5-51.1) L 07/05/24 08:55
Monocytes % 4.8 % (1.7-9.3) 07/05/24 08:55
Eosinophils % 0.4 % (0-6) 07/05/24 08:55
Basophils % 0.3 % (0-2) 07/05/24 08:55
Nucleated RBC % 0 % 07/05/24 08:55
PT 14.0 Sec (11.4-14.6) 07/05/24 08:55
INR 1.03 07/05/24 08:55
APTT 23.5 Sec (23.4-35.0) 07/05/24 08:55
Sodium 138 mmol/L (135-145) 07/06/24 04:47
Potassium 4.7 mmol/L (3.5-5.1) 07/06/24 04:47
Chloride 105 mmol/L (98-107) 07/06/24 04:47
Carbon Dioxide 26 mmol/L (22-30) 07/06/24 04:47
BUN 34 mg/dl (7-17) H 07/06/24 04:47
Creatinine 1.0 mg/dL (0.6-1.0) 07/06/24 04:47
Estimated Creat Clear 41 ml/min 07/06/24 04:47
eGFR 55.90 07/06/24 04:47
Glucose 130 mg/dl (70-99) H 07/06/24 04:47
Calcium 8.4 mg/dl (8.4-10.2) 07/06/24 04:47
Total Bilirubin 0.6 mg/dl (0.2-1.3) 07/05/24 08:55
AST 27 U/L (14-36) 07/05/24 08:55
ALT 21 U/L (0-35) 07/05/24 08:55
Alkaline Phosphatase 68 U/L (38-126) 07/05/24 08:55
Total Protein 6.0 g/dl (6.3-8.2) L 07/05/24 08:55
Albumin 3.9 g/dl (3.5-5.0) 07/05/24 08:55
Blood Type B POS 07/05/24 11:02
Antibody Screen Negative (Negative) 07/05/24 11:02
Diagnostic Results: as per HPI
CT Head - 07/05
No acute intracranial abnormality.
No acute abnormalities within the cervical spine.
Multilevel cervical spondylosis, detailed above.
4.8 mm nodule within the apex of the left upper lobe. If patient is at elevated risk for lung cancer, consider dedicated CT the chest in 12 months.
Xray of right hip: 07/05 -There is a displaced intertrochanteric fracture of the RIGHT hip. Joint space is unremarkable. No gross soft tissue abnormality.
Ribs xray - 07/05 No radiographic evidence of acute cardiopulmonary abnormality. No displaced rib fractures.
Assessment: 84-year-old female with PMH of (hypertension, hyperlipidemia, peripheral artery disease s/p PCI, stress incontinence s/p recent sling procedure , interstitial cystitis and bladder prolapse) s/p right hip ORIF post mechanical fall
resulting in right hip fracture.
Plan
PM&R PT/OT to increase independence with ADLs, improve balance, coordination, endurance, strength, mobility, community reintegration, decreased burden of care on others and family education.
Ambulatory dysfunction: status post Right hip gamma nail.
Ambulatory Dysfunction: Hip fracture, s/p gamma nail on 07/[address] Pena. Con PT/OT
Acute R Hip Fx
- POD#1 R Hip Gamma Nail on 07/05
- Pain Control
- PT/OT as tolerated
Acute Blood Loss Anemia 2/2 Orthopedic Procedure
- Hb 12.5 (pre-op) --> 10.0 today
- Asymptomatic
- Continue to monitor CBC for resolution.
Leukocytosis
- Improvin.8 (yesterday) --> 10.9 (today)
- Likely reactive/stress related
- Continue to monitor for resolution.
Polymyalgia Rheumatica
- Continue home meds- Prednisone 2 mg and 5 mg daily
- Consider stress dose steroids for hypotension
Left Lung: nodule 4.8 mm on apex of left upper lobe- repeat imaging recommended in few months. OP follow up
HTN: continue medications, monitor closely
HLD:Atorvastatin 10 mg daily
Psych: Psychology consult. Sertraline 25mg HS
Skin: monitor for pressure sores/rashes/lesions.
Pain: acetaminophen or oxycodone as needed, Dilaudid 0.5mg IV q 1 hour prn
Nausea: Zofran 4mg IV 6 hours prn
Bowel: Colace and Senna, PRN bisacodyl.
Bladder: Time void, PVRs, PRN straight cath. On Flomax 0.4mg daily prn
GI Prophylaxis: recommend Pantoprazole
DVT Prophylaxis: Mechanical, ASA x 4 weeks per ortho
Pulmonary: Incentive spirometry
Safety: Continue to reinforce assistance with all transfers.
Code Status: Full code
Dispo (date/plan/equipment needs): Home with family care. Social history reviewed.
Functional and Medical Goals: Modified Independent with ADL�s, ambulation, transfers
Discharge Destination: Acute inpatient rehabilitation
Summary of recommendations: Patient previous independent prior to hip fracture now post ORIF, would benefit from acute inpatient rehabilitation to increase independence with ADLs, improve balance, coordination, endurance, strength, mobility,
community reintegration, decreased burden of care on others and family education.
Ambulatory Dysfunction: Hip fracture, s/p gamma nail on 07/[address] Pena. Cont PT/OT. Partial weight bearing
Pain: acetaminophen or oxycodone as needed, Dilaudid 0.5mg IV q 1 hour prn . Would need to have pain controlled on PO medications for 24 hours prior to discharge
Bowel: Colace and Senna, PRN bisacodyl.
Bladder: Time void, PVRs, PRN straight cath. On Flomax 0.4mg daily prn
GI Prophylaxis: recommend Pantoprazole
DVT Prophylaxis: Mechanical, ASA x 4 weeks per ortho
Pulmonary: Incentive spirometry
Safety: Continue to reinforce assistance with all transfers.
Thank you for allowing me to care for your patient. Please contact me with any questions or concerns.

Documented by User: Navin Carreon MD 07/07/24 12:42
Consultation - Medical
-
Referring Provider: Alphonso Thompson
Chief Complaint: Ambulatory dysfunction status post right hip surgery
History of Present Illness: 84-year-old female with PMH of (hypertension, hyperlipidemia, peripheral artery disease s/p PCI, stress incontinence s/p recent sling procedure , interstitial cystitis and bladder prolapse) presented to the ER on 07/05
due to a mechanical fall due to her foot getting caught in the sheets while getting out of bed to use the bathroom. She injured the back of her head and right hip/thigh. She was not able to get back up and called her family for help. Xray of the
hip significant for a right intertrochanteric femur fracture. On 07/05/2024 she had a right hip long gamma nail with distal interlocking screw by Dr. Pena. Partial weightbearing right lower extremity with use of walker for assistance. Plan for
aspirin 3 and 25 mg daily for 4 weeks for DVT prophylaxis. Expected acute blood loss anemia with hemoglobin of 10 from 12.5. Plan for stress dose steroids if hypotension with her steroid use for polymyalgia rheumatica.
Past Medical History: hypertension, hyperlipidemia, peripheral artery disease s/p PCI, stress incontinence s/p recent sling procedure , interstitial cystitis and bladder prolapse
Procedure History: Right hip gamma nail(07/05), Left ankle fixation�94, cataract surgery�2011
Family History: not pertinent
Social History:
Functional Level Premorbidly: Independent with all activities
Functional Level Currently: Eating�modified independence, grooming�supervision, toileting�min assist, lower extremity self-care�mod assist,Transfer sit to stand�min assist, stand to sit�min assist, stand/pivot�not tested, blood bank assistant needed for lift
off and balance , static supported standing- min assist, Ambulate 15 feet x 2 with rolling walker and min assist, therapist navigating IV pole
Tobacco: Denies
Alcohol: Denies
Drug use: Denies
Lives with: Alone
24-hour assistance available: No, can ask sons if needs assistance
Number of floors: one story with 2 steps to family room and 2 step to kitchen, 2 steps down into sunroom
# steps to enter: 2
# steps to second floor:>2 steps up to main level, including bedroom
Driving: Yes
Occupation: retired
Allergies:
Allergy/AdvReac Type Severity Reaction Status Date / Time
Sulfa (Sulfonamide Allergy Hives Verified 07/05/24 08:33
Antibiotics)
Review of Systems:
Constitutional: (x) abNormal _fatigue
Eye: (x) Normal _
Ear/Nose/Throat: (x) Normal _
Respiratory: (x) Normal _
Cardiovascular: (x) Normal _
Gastrointestinal: (x) Normal _
Genitourinary: (x) Normal _
Musculoskeletal: (x) right hip pain, fracture s/p ORIF
Integumentary: (x) Normal _
Neurologic: (x) Normal _
Psychiatric: (x) Normal _
Endocrine: (x) polymyalgia rheumatica
Hematologic/Lymphatic: (x) Normal _
Allergic/Immunologic: (x) Normal _
Medications:
Active Current Visit Medication List
Category Date Time Status
0.9% Sodium Chloride 1000 ml [Nss] 1,000 ml Med 07/05/24 16:15 Active
IV 80 mls/hr
Acetaminophen [Tylenol] Med 07/05/24 18:26 Active
650 mg PO Q4HWA
Artificial Tears (Pf) [Refresh Eye Drops (Pf)] Med 07/05/24 19:30 Active
1 drops BOTH EYES BIDPRN PRN
Aspirin Med 07/05/24 18:00 Active
325 mg PO DAILY
Atorvastatin [Lipitor] Med 07/05/24 19:30 Active
10 mg PO DAILY
Calcium Carbonate/Vitamin D3 [Oscal 500 + D] Med 07/05/24 20:00 Active
500 mg PO BID
Calcium Polycarbophil [Fibercon] Med 07/06/24 08:00 Active
1,250 mg PO DAILY
Cyanocobalamin [Vitamin B-12] Med 07/05/24 18:26 Active
1,000 mcg PO DAILY
Docusate Sodium [Colace] Med 07/05/24 20:00 Active
100 mg PO BID
FOLic ACID [Folvite] Med 07/05/24 18:26 Active
1 mg PO DAILY
Flush (0.9% Sodium Chloride) [Flush (Nss)] Med 07/05/24 17:00 Active
See Dose Instructions IV PER PROTOCOL
HYDROmorphone [Dilaudid] Med 07/05/24 12:52 Active
0.5 mg IV Q1HPRN PRN
Lisinopril [Zestril] Med 07/05/24 18:26 Active
10 mg PO DAILY
Mag Hydrox/Al Hydrox/Simeth [Maalox] Med 07/05/24 16:10 Active
30 ml PO Q4HPRN PRN
Magnesium Hydroxide [Milk of Magnesia] Med 07/05/24 18:26 Active
30 ml PO DAILYPRN PRN
Magnesium Hydroxide [Milk of Magnesia] Med 07/05/24 16:10 Active
30 ml PO [id number] PRN
Multivitamin [Theragran] Med 07/05/24 19:00 Active
1 tablet PO DAILY
Ondansetron Injectable [Zofran] Med 07/05/24 16:10 Active
4 mg IV Q6HPRN PRN
Oxycodone [Roxicodone] Med 07/05/24 16:10 Active
10 mg PO Q4HPRN PRN
Oxycodone [Roxicodone] Med 07/05/24 16:10 Active
5 mg PO Q4HPRN PRN
Oxycodone [Roxicodone] Med 07/05/24 18:26 Active
5 mg PO Q4HPRN PRN
Prednisone [Deltasone] Med 07/06/24 08:00 Active
2 mg PO DAILY
Prednisone [Deltasone] Med 07/06/24 08:00 Active
5 mg PO DAILY
Sennosides [Senokot] Med 07/05/24 20:00 Active
17.2 mg PO BID
Sertraline HCl [Zoloft] Med 07/05/24 22:00 Active
25 mg PO HS
Tamsulosin [Flomax] Med 07/05/24 18:26 Active
0.4 mg PO DAILYPRN PRN
Vitals:
Temp Pulse Resp BP Pulse Ox
98.1 F 83 20 121/67 99
07/06/24 15:28 07/06/24 15:28 07/06/24 15:28 07/06/24 15:28 07/06/24 07:30
Height 5 ft 3 in
Actual Weight 74.7 kg
Body Mass Index (BMI) 29.2
Physical Exam:
General Appearance/Observation: Well-developed, well-nourished female in no apparent distress.
Pain/Comfort Assessment: right hip
Mood/Affect: Appropriate
Integumentary/Operative Site: right hip incision with blood stained dressing and another dressing above the knee
Pressure Ulcer Evaluation: not visualized due to Teds stockings
Eyes: Conjunctiva/Lids: normal Pupils: pupils equal round and reactive to light and Accommodation
Ears/Nose/Throat: oral mucosa moist, throat clear. Lips/Teeth/Gums: normal
Neck: No muscle spasm or tenderness
Cardiovascular: Heart: regular, no murmur
Pulses: dorsalis pedis 2+ bilaterally
Respiratory: Respiratory Effort/Chest Expansion: normal Auscultation: Clear to auscultation bilaterally
Gastrointestinal: abdomen not tender, no distension, normal abdominal bowel sounds
Extremities: Edema: None Cyanosis: None Trophic changes: None
Neurology Exam:
Orientation: Alert, Oriented to self, Time, Place
Memory: Intact for immediate Medical concerns
Comprehension: Intact
Two step command: Intact
Naming: Intact
Cranial Nerves:
CNII: Pupillary light reflex: Intact Visual Field: NT
CN III, IV, : Extraocular muscles: Intact
CN V: Facial Sensation at Forehead: Intact, Maxilla: Intact, Mandible: Intact
CN VII: Facial movement: Symmetric
CN VIII: Hearing: Normal
CN IX/X: Speech & swallow: Normal, Position of Uvula: Midline
CN XI: Shoulder shrug: Symmetric
CN XII: Tongue protrusion: Midline
Sensory:
Light touch: Intact in bilateral upper and lower extremities
Reflexes:
Biceps: 2+ bilaterally
Brachioradialis: 2+ bilaterally
Triceps: 2+ bilaterally
Patellar: 2+ bilaterally
Achilles: trace bilaterally
Babinski: Down going bilaterally
Ankit: Negative bilaterally
Cerebellar: Dysmetria/Ataxia: None
Musculoskeletal: Muscle: Motor: (Manual muscle scale 0-5)��
Muscle SA EF WE EE FF FA HF KE DF EHL PF
Right� 5 5 5 5 5 5 5 5 5 5
Left 5 5 5 5 5 *2 *2 5 5 5
�
* pain in the groin.
Tone: Normal in all extremities
Range of Motion: Passively within normal limits in all extremities, except right hip due to surgery
Lab Results
Labs
WBC 10.9 10^3/uL (4.8-10.8) H 07/06/24 04:47
RBC 3.50 10^6/uL (4.20-5.40) L 07/06/24 04:47
Hgb 10.0 g/dL (12.0-16.0) L 07/06/24 04:47
Hct 31.0 % (37.0-47.0) L 07/06/24 04:47
MCV 88.6 fL (81.0-99.0) 07/06/24 04:47
MCH 28.6 pg (27.0-31.0) 07/06/24 04:47
MCHC 32.3 g/dL (33.0-37.0) L 07/06/24 04:47
RDW 16.9 % (11.5-14.5) H 07/06/24 04:47
Plt Count 139 10^3/uL (130-400) 07/06/24 04:47
MPV 10.3 fL (7.4-10.4) 07/06/24 04:47
Abs Immat Gran (auto) 0.2 10^3/uL (0-0.05) H 07/05/24 08:55
Absolute Neuts (auto) 12.1 10^3/uL (1.4-6.5) H 07/05/24 08:55
Absolute Lymphs (auto) 1.8 10^3/uL (1.2-3.4) 07/05/24 08:55
Absolute Monos (auto) 0.7 10^3/uL (0.1-0.6) H 07/05/24 08:55
Absolute Eos (auto) 0.1 10^3/uL (0-0.7) 07/05/24 08:55
Absolute Basos (auto) 0.1 10^3/uL (0-0.2) 07/05/24 08:55
Immature Gran % 1.1 % (0-0.5) H 07/05/24 08:55
Neutrophils % 81.6 % (42.2-75.2) H 07/05/24 08:55
Lymphocytes % 11.8 % (20.5-51.1) L 07/05/24 08:55
Monocytes % 4.8 % (1.7-9.3) 07/05/24 08:55
Eosinophils % 0.4 % (0-6) 07/05/24 08:55
Basophils % 0.3 % (0-2) 07/05/24 08:55
Nucleated RBC % 0 % 07/05/24 08:55
PT 14.0 Sec (11.4-14.6) 07/05/24 08:55
INR 1.03 07/05/24 08:55
APTT 23.5 Sec (23.4-35.0) 07/05/24 08:55
Sodium 138 mmol/L (135-145) 07/06/24 04:47
Potassium 4.7 mmol/L (3.5-5.1) 07/06/24 04:47
Chloride 105 mmol/L (98-107) 07/06/24 04:47
Carbon Dioxide 26 mmol/L (22-30) 07/06/24 04:47
BUN 34 mg/dl (7-17) H 07/06/24 04:47
Creatinine 1.0 mg/dL (0.6-1.0) 07/06/24 04:47
Estimated Creat Clear 41 ml/min 07/06/24 04:47
eGFR 55.90 07/06/24 04:47
Glucose 130 mg/dl (70-99) H 07/06/24 04:47
Calcium 8.4 mg/dl (8.4-10.2) 07/06/24 04:47
Total Bilirubin 0.6 mg/dl (0.2-1.3) 07/05/24 08:55
AST 27 U/L (14-36) 07/05/24 08:55
ALT 21 U/L (0-35) 07/05/24 08:55
Alkaline Phosphatase 68 U/L (38-126) 07/05/24 08:55
Total Protein 6.0 g/dl (6.3-8.2) L 07/05/24 08:55
Albumin 3.9 g/dl (3.5-5.0) 07/05/24 08:55
Blood Type B POS 07/05/24 11:02
Antibody Screen Negative (Negative) 07/05/24 11:02
Diagnostic Results: as per HPI
CT Head - 07/05
No acute intracranial abnormality.
No acute abnormalities within the cervical spine.
Multilevel cervical spondylosis, detailed above.
4.8 mm nodule within the apex of the left upper lobe. If patient is at elevated risk for lung cancer, consider dedicated CT the chest in 12 months.
Xray of right hip: 07/05 -There is a displaced intertrochanteric fracture of the RIGHT hip. Joint space is unremarkable. No gross soft tissue abnormality.
Ribs xray - 07/05 No radiographic evidence of acute cardiopulmonary abnormality. No displaced rib fractures.
Assessment:
84-year-old female with PMH of (hypertension, hyperlipidemia, peripheral artery disease s/p PCI, stress incontinence s/p recent sling procedure , interstitial cystitis and bladder prolapse) s/p right hip ORIF post mechanical fall resulting in right
hip fracture.
Plan
PM&R PT/OT to increase independence with ADLs, improve balance, coordination, endurance, strength, mobility, community reintegration, decreased burden of care on others and family education.
Ambulatory dysfunction: status post Right hip gamma nail.
Ambulatory Dysfunction: Hip fracture, s/p gamma nail on 07/[address] Pena. Con PT/OT
Acute R Hip Fx
- POD#1 R Hip Gamma Nail on 07/05
-Partial weightbearing with walker
- Pain Control
- PT/OT as tolerated
Acute Blood Loss Anemia 2/2 Orthopedic Procedure
- Hb 12.5 (pre-op) --> 10.0 today
- Asymptomatic
- Continue to monitor CBC for resolution.
Leukocytosis
- Improvin.8 (yesterday) --> 10.9 (today)
- Likely reactive/stress related
- Continue to monitor for resolution.
Polymyalgia Rheumatica
- home meds- Prednisone 2 mg and 5 mg daily
- Consider stress dose steroids for hypotension
Left Lung: nodule 4.8 mm on apex of left upper lobe- repeat imaging recommended in few months. OP follow up
HTN: continue medications, monitor closely
HLD:Atorvastatin 10 mg daily
Psych: Psychology consult. Sertraline 25mg HS
Skin: monitor for pressure sores/rashes/lesions.
Pain: acetaminophen or oxycodone as needed, Dilaudid 0.5mg IV q 1 hour prn
Nausea: Zofran 4mg IV 6 hours prn
Bowel: Colace and Senna, PRN bisacodyl.
Bladder: Time void, PVRs, PRN straight cath. On Flomax 0.4mg daily prn
GI Prophylaxis: recommend Pantoprazole
DVT Prophylaxis: Mechanical, ASA x 4 weeks per ortho
Pulmonary: Incentive spirometry
Safety: Continue to reinforce assistance with all transfers.
Code Status: Full code
Dispo (date/plan/equipment needs): Home with family care. Social history reviewed.
Functional and Medical Goals: Modified Independent with ADL�s, ambulation, transfers
Discharge Destination: Acute inpatient rehabilitation
Summary of recommendations: Patient previous independent prior to hip fracture now post ORIF, would benefit from acute inpatient rehabilitation to increase independence with ADLs, improve balance, coordination, endurance, strength, mobility,
community reintegration, decreased burden of care on others and family education.
Ambulatory Dysfunction: Hip fracture, s/p gamma nail on 07/[address] Pena. Cont PT/OT. Partial weight bearing
Pain: acetaminophen or oxycodone as needed, Dilaudid 0.5mg IV q 1 hour prn . Would need to have pain controlled on PO medications for 24 hours prior to discharge
Bowel: Colace and Senna, PRN bisacodyl.
Bladder: Time void, PVRs, PRN straight cath. On Flomax 0.4mg daily prn
GI Prophylaxis: recommend Pantoprazole
DVT Prophylaxis: Mechanical, ASA x 4 weeks per ortho
Pulmonary: Incentive spirometry
Safety: Continue to reinforce assistance with all transfers.
Thank you for allowing me to care for your patient. Please contact me with any questions or concerns.
Attending Statement:
I saw and examined the patient today. Reviewed care plan with patient, therapy, nursing, and physician blood bank assistant. I agree with the above subjective and physical exam, and plan as documented by BUNNY Choi with adjustments made as necessary.
[2024-07-06] MEDS: ZOLOFT 25 MG PO (21:44)
[2024-07-07] MEDS: TYLENOL 650 MG PO ×6 (00:15→19:57)
[2024-07-07] MEDS: NSS 1000 IV (00:17)
--- NOTE | 2024-07-07 07:29 | W.PN.UPDATE ---
Update Note
Progress Note Update
Ms. Wiggins is POD2 following her right hip cephalomedullary nail performed by Dr. Pena. She is resting comfortably in bed this morning. She does endorse aching pain about the hip, as well as increased pain with movement of the hip. She reports she
was able to work with physical therapy yesterday.
Directed exam of the right lower extremity reveals surgical incisions with strikethrough of blood. Expected post-operative edema throughout the right lower extremity. Mild tenderness to palpation about the hip. Thigh soft and compressible. Calf soft
and nontender. Patient able to wiggle toes, plantar and dorsiflex ankle. Neurovascularly intact.
Hgb 10.0 yesterday.
84-year-old female POD 2 Right hip gamma nail 07/05/[address] Pena.
- PWB RLE with use of walker for assistance. We appreciate the assistance of PT/OT.
- ASA 325mg once daily x 4 weeks for DVT prophylaxis.
- Hgb 10.0 yesterday AM.
- Pain control per primary team.
- Maintain surgical dressing until 7-10 days post-op. Reinforce or change as needed. Staple removal at 2 weeks post-op.
- Case management consult for d/c planning.
- Patient is stable post-operatively from an orthopedic standpoint. Orthopedics will sign off for the time being. Patient to follow up outpatient. Please reach out with any additional orthopedic questions or concerns.
[2024-07-07] MEDS: DELTASONE 2 MG PO (08:05)
[2024-07-07] MEDS: OSCAL 500 + D 500 MG PO ×2 (08:05→19:57)
[2024-07-07] MEDS: COLACE 100 MG PO ×2 (08:05→19:56)
[2024-07-07] MEDS: VITAMIN B-12 1000 MCG PO (08:05)
[2024-07-07] MEDS: SENOKOT 17.2 MG PO ×2 (08:05→19:56)
[2024-07-07] MEDS: FIBERCON 1250 MG PO (08:05)
[2024-07-07 08:06] VITALS: BP 119/41
[2024-07-07] MEDS: FOLVITE 1 MG PO (08:06)
[2024-07-07] MEDS: THERAGRAN 1 TABLET PO (08:06)
[2024-07-07] MEDS: DELTASONE 5 MG PO (08:06)
[2024-07-07] MEDS: ASPIRIN 325 MG PO (08:06)
[2024-07-07] MEDS: ZESTRIL 10 MG PO (08:06)
[2024-07-07] MEDS: LIPITOR 10 MG PO (08:06)
--- NOTE | 2024-07-07 08:31 | W.PN.UPDATE ---
Update Note
Progress Note Update
I saw and evaluated the patient. I reviewed the resident�s note and agree with findings and plan as documented in the resident�s note.
Gen: NAD, AAOx3.
Eyes: EOMI, PERRLA, no scleral icterus.
Neck: supple.
CV: Continues to remain RRR, +S1/S2, no m/r/g.
Resp: CTAB anteriorly, no rales, wheezes, or rhonchi.
Abd: Continues to +BS, soft, NT, ND
Skin: No rashes.
Neuro: Continues to CN 2-12 intact, non-focal.
Psych: Normal mood and affect.
Acute R hip fx:
-s/p Right hip gamma nail on 07/05/2024
-pain control
-PT/OT
Other problems:
Leukocytosis, likely reactive, improving
Acute blood loss anemia due to surgery: Hb trend noted. OK for d/c with repeat CBC in 3-4 days.
PMR: cont home meds of MTX/Prednisone.
HLD: cont statin
Essential HTN: Cont ACEi
FULL/ASA
Medically cleared for discharge. Case management aware.
[2024-07-07 09:01] LABS: Hemoglobin 8.7 g/dL (12.0-16.0); Mean Corp Hgb Conc. 32.2 g/dL (33.0-37.0); Mean Platelet Volume 10.4 fL (7.4-10.4); Platelet Count 116 10^3/uL (130-400); White Blood Cell Count 11.6 10^3/uL (4.8-10.8)
--- NOTE | 2024-07-07 09:16 | CM ---
Called [facility] and spoke with Malcolm - [phone] regarding authorization requested yesterday.
REQUEST ID# [id number]
She states that it is still pending clinical review
PLAN: Await auth approval for SNF ([facility])
--- NOTE | 2024-07-07 11:22 | CM ---
Addendum entered by Juany Roman 07/07/24 15:04:
Left message with [employer] to follow up on auth
Original Note:
Patient seen today. Clinicals faxed yesterday
Today Faxed ([phone]) [employer] insurance PM&R consult documentation.
Reference # [id number]
PLAN: Await approval for [facility] acute rehab
--- NOTE | 2024-07-07 12:15 | W.PN.HOSP.TC ---
Today's Communication/Plan
-
Pt to be discharge to [facility] today pending insurance approval
Assessment / Plan
Assessment / Plan
84 year old female POD #1 s/p R Hip Gamma Nail
1. Acute R Hip Fx
- POD#2 R Hip Gamma Nail
- Pain Control
- PT/OT as cornelio; seen by PT/OT yesterday who recommened acute rehab; consulted Dr. aCrreon; pending insurance
2. Acute Blood Loss Anemia 2/2 Orthopedic Procedure
- Hb 12.5 (pre-op) --> 10.0 --> 8.7 today; patient being discharged to [facility]; recheck CBC in 2-3 days.
- Asymptomatic
3. Leukocytosis
- Improvin.8 (yesterday) --> 11.6 (today)
- Likely reactive/stress related
- Continue to monitor for resolution.
4. Polymyalgia Rheumatica
- Continue Home Meds
- Consider stress dose steroids for hypotension
5. HTN
- Continue Home Meds
6. HLD
- Continue Home Meds
7. DVT PPx
- ASA x 4 weeks per ortho
Anticipated Discharge: Today
Subjective/Interval History
-
Date of Service: July 07, 2024
Pt notes painful ROM of the right hip described as achy. Pt worked with PT/OT yesterday. Otherwise denies acute complaints.
Objective Data
-
Labs:
Laboratory Results
07/07/24
08:26
WBC 11.6 H
Hgb 8.7 L
Hct 27.0 L
Plt Count 116 L
Vital Signs:
Vital Signs
Temp Pulse Resp BP Pulse Ox
98.1 F 75 20 119/41 99
07/07/24 08:06 07/07/24 08:06 07/07/24 08:06 07/07/24 08:06 07/07/24 08:06
I&O
07/06/24 07/07/24 07/08/24
06:59 06:59 06:59
Intake Total 2190 / 0 3360 / 3360
Balance 0 / 0 3360 / 3360
Review of Systems
-
History Source: Patient
All other systems: Reviewed and negative
Musculoskeletal: Reports Joint Pain
Physical Exam
-
General: Well Developed, Well Nourished and No Apparent Distress
HEENT: Normocephalic and Atraumatic
Respiratory: Clear to Auscultation
Cardiac: Regular Rhythm and S1/S2
GI: Soft and Nontender
Musculoskeletal: No Edema
Psych: Calm
[2024-07-07 12:57] VITALS: BP 131/57; PULSE 73; O2SAT 99
[2024-07-07 15:00] VITALS: BP 116/49
--- NOTE | 2024-07-07 16:27 | CM ---
TC to [facility] [phone]
Reference # [id number], still pending.
Plan Acute rehab once auth obtained.
[2024-07-07 17:08] VITALS: BP 118/57; PULSE 80; O2SAT 99
[2024-07-07] MEDS: ZOLOFT 25 MG PO (22:04)
[2024-07-07 23:42] VITALS: BP 122/42
[2024-07-08] MEDS: TYLENOL PO ×3 (00:06→19:02)
[2024-07-08 05:30] VITALS: BMI 28.6
[2024-07-08 06:26] LABS: Hematocrit 25.4 % (37.0-47.0); Hemoglobin 8.2 g/dL (12.0-16.0); Mean Corp Hgb Conc. 32.3 g/dL (33.0-37.0); Mean Corpuscular Hgb 28.9 pg (27.0-31.0); Mean Corpuscular Volume 89.4 fL (81.0-99.0); Mean Platelet Volume 10.6 fL (7.4-10.4); Platelet Count 122 10^3/uL (130-400); Red Blood Cell Count 2.84 10^6/uL (4.20-5.40); Red Cell Dist. Width 16.9 % (11.5-14.5); White Blood Cell Count 10.7 10^3/uL (4.8-10.8)
[2024-07-08 07:48] VITALS: BP 113/47
--- NOTE | 2024-07-08 08:24 | W.PN.UPDATE ---
Update Note
Progress Note Update
I saw and evaluated the patient. I reviewed the resident�s note and agree with findings and plan as documented in the resident�s note.
No new complaints.
Gen: NAD, AAOx3.
Eyes: EOMI, PERRLA, no scleral icterus.
Neck: supple.
CV: RRR, +S1/S2, no m/r/g.
Resp: remains CTAB anteriorly, no rales, wheezes, or rhonchi.
Skin: No rashes.
Neuro: remains CN 2-12 intact, non-focal.
Psych: Normal mood and affect.
Acute R hip fx:
-s/p Right hip gamma nail on 07/05/2024
-pain control
-PT/OT
Other problems:
Leukocytosis, likely reactive, improving
Acute blood loss anemia due to surgery: Hb trend noted. OK for d/c with repeat CBC in 3-4 days.
PMR: cont home meds of MTX/Prednisone.
HLD: cont statin
Essential HTN: Cont ACEi
FULL/ASA
Remains medically cleared for discharge since 24AM. Case management aware.
--- NOTE | 2024-07-08 08:30 | CM ---
Addendum entered by Juany Roman 07/08/24 14:46:
Dr. Anand tt and stated that the peer to peer with Dr. Cm at [facility] was denied for acute rehab.
CM reviewed SNF options with patient & will request auth for SNF - [facility] & [facility] referrals entered.
Chaya from [facility] will accept patient
Called [facility] and spoke with Gregg for SNF authorization. Pending Reference #: [id number]
CM also called [facility] dept. as she stated she will attach previous clinicals.
transportation forms on chart
PLAN: Await authorization for [facility]
Report #: [phone]
Fax #: [phone]
Addendum entered by Juany Roman 07/08/24 10:39:
Call from Zonia at [facility] [phone] - inpatient acute rehab denied.
tt Dr. Lockhart medical lab scientist regarding a peer to peer at [facility] by 5pm
Notified Blanca at [facility]
Will await peer to peer result
Addendum entered by Juany Roman 07/08/24 09:05:
Call from Zonia at [facility] who states this is over at medical director occupational health now for review. Will get back to CM
Original Note:
CM called [employer] [facility] to follow up on authorization request for acute rehab
Reference # [id number]
Dilcia with [facility] who stated the status is still pending
CM also emailed Keesha Fernandez at [email or web address]
CM will continue to follow
PLAN: Acute rehab, based upon [facility] insurance approval
[2024-07-08] MEDS: OSCAL 500 + D 500 MG PO ×2 (08:41→19:58)
[2024-07-08] MEDS: DELTASONE 5 MG PO (08:41)
[2024-07-08] MEDS: FIBERCON 1250 MG PO (08:41)
[2024-07-08] MEDS: FOLVITE 1 MG PO (08:41)
[2024-07-08] MEDS: ZESTRIL 10 MG PO (08:41)
[2024-07-08] MEDS: LIPITOR 10 MG PO (08:41)
[2024-07-08] MEDS: THERAGRAN 1 TABLET PO (08:41)
[2024-07-08] MEDS: TYLENOL 650 MG PO ×3 (08:41→19:58)
[2024-07-08] MEDS: DELTASONE 2 MG PO (08:41)
[2024-07-08] MEDS: SENOKOT 17.2 MG PO ×2 (08:41→19:58)
[2024-07-08] MEDS: COLACE 100 MG PO ×2 (08:41→19:58)
[2024-07-08] MEDS: ASPIRIN 325 MG PO (08:42)
[2024-07-08] MEDS: VITAMIN B-12 1000 MCG PO (08:42)
--- NOTE | 2024-07-08 09:16 | W.PN.HOSP.TC ---
Today's Communication/Plan
-
. Awaiting peer to peer review for [facility]. Medically cleared for discharge.
Assessment / Plan
Assessment / Plan
84 year old female POD #1 s/p R Hip Gamma Nail
1. Acute R Hip Fx
- POD#3 R Hip Gamma Nail
- Pain Control
- PT/OT as cornelio; seen by PT/OT yesterday who recommened acute rehab; consulted Dr. Carreon; pending insurance
- Per insurance denial; peer-peer review today.
2. Acute Blood Loss Anemia 2/2 Orthopedic Procedure
- Hb 12.5 (pre-op) --> 10.0 --> 8.7 --> 8.2 today; patient being discharged to [facility]; recheck CBC in 2-3 days; PMnR to be made aware.
- Asymptomatic
3. Leukocytosis
- Improvin.8 (yesterday) --> 11.6 --> 10.6 (today)
- Likely reactive/stress related
- Resolved.
4. Polymyalgia Rheumatica
- Continue Home Meds
- Consider stress dose steroids for hypotension
5. HTN
- Continue Home Meds
6. HLD
- Continue Home Meds
7. DVT PPx
- ASA 325 x 4 weeks per ortho
- After 4 weeks, resume original 81mg dose
Anticipated Discharge: Today
Subjective/Interval History
-
Date of Service: July 08, 2024
No acute complaints. Awaiting insurance approval for [facility]. Per , insurance approval denied this morning, awaiting peer-peer review.
Objective Data
-
Labs:
Laboratory Results
07/08/24
05:05
WBC 10.7
Hgb 8.2 L
Hct 25.4 L
Plt Count 122 L
Vital Signs:
Vital Signs
Temp Pulse Resp BP Pulse Ox
98.5 F 72 14 113/47 100
07/08/24 07:48 07/08/24 07:48 07/08/24 07:48 07/08/24 07:48 07/08/24 07:48
I&O
07/07/24 07/08/24 07/09/24
06:59 06:59 06:59
Intake Total 3360 / 3360 1919
Balance 3360 / 3360 1919
Review of Systems
-
History Source: Patient
All other systems: Reviewed and negative
Musculoskeletal: Reports Joint Pain
Physical Exam
-
General: No Apparent Distress and Comfortable
HEENT: Normocephalic and Atraumatic
Respiratory: Clear to Auscultation
Cardiac: Regular Rhythm and S1/S2
GI: Soft and Nontender
Musculoskeletal: Other (s/p right hip fx/gamma nail)
Skin: Warm and Dry
Neuro: Awake and Alert
Psych: Calm
Data Reviewed
-
Labs: Labs Reviewed by me and Discussed with Patient
[2024-07-08 13:01] VITALS: BP 115/65; PULSE 81; O2SAT 98
[2024-07-08 15:05] VITALS: BP 140/64
[2024-07-08 15:35] VITALS: BP 140/64; PULSE 90; O2SAT 97
[2024-07-08] MEDS: ZOLOFT 25 MG PO (22:15)
[2024-07-08 23:09] VITALS: BP 137/46
[2024-07-09] MEDS: TYLENOL PO (00:05)
[2024-07-09] MEDS: TYLENOL 650 MG PO ×2 (04:23→09:28)
[2024-07-09 06:00] VITALS: BMI 28.3
--- NOTE | 2024-07-09 07:34 | W.PN.UPDATE ---
Update Note
Progress Note Update
I saw and evaluated the patient. I reviewed the resident�s note and agree with findings and plan as documented in the resident�s note.
No new complaints.
Gen: remains NAD, AAOx3.
Eyes: EOMI, PERRLA, no scleral icterus.
Neck: supple.
CV: RRR, +S1/S2, no m/r/g.
Resp: continues to remain CTAB anteriorly, no rales, wheezes, or rhonchi.
Skin: No rashes.
Neuro: continues to remain CN 2-12 intact, non-focal.
Psych: Normal mood and affect.
Acute R hip fx:
-s/p Right hip gamma nail on 07/05/2024
-pain control
-PT/OT
Other problems:
Leukocytosis, likely reactive, improving
Acute blood loss anemia due to surgery: Hb trend noted. OK for d/c with repeat CBC in 3-4 days.
PMR: cont home meds of MTX/Prednisone.
HLD: cont statin
Essential HTN: Cont ACEi
FULL/ASA
Total time spent on d/c = 31 min. This included today's physical exam, progress note, review of laboratory and diagnostic data, preparation of discharge documents and prescriptions, and discussions about the pt's hospital course and discharge plan
with the patient and other biomedical scientist involved in the patient's care.
[2024-07-09 07:45] VITALS: BP 111/50
--- NOTE | 2024-07-09 08:15 | CM ---
Addendum entered by Juany Roman 07/09/24 10:54:
IMM explained & signed. In chart
Addendum entered by Juany Roman 07/09/24 10:53:
11:30 transport to [place] - [facility] in admissions updated of time
Original Note:
CM spoke to Zonia BRASHER at [facility]. Patient approved for SNF
AUTHORIZATION #: [id number]
START 07/09 --- NRD 07/12
Fax updates to [phone]
Left message with [facility] [place] of ins auth information
transportation forms on chart-time TBD
PLAN: [facility]
Report #: [phone]
Fax #: [phone]
Ambulance forms on chart-time TBD
[2024-07-09 09:13] LABS: Hematocrit 27.3 % (37.0-47.0); Hemoglobin 8.7 g/dL (12.0-16.0); Mean Corp Hgb Conc. 31.9 g/dL (33.0-37.0); Mean Corpuscular Hgb 29.1 pg (27.0-31.0); Mean Corpuscular Volume 91.3 fL (81.0-99.0); Red Blood Cell Count 2.99 10^6/uL (4.20-5.40); Red Cell Dist. Width 17.5 % (11.5-14.5); White Blood Cell Count 11.3 10^3/uL (4.8-10.8)
[2024-07-09] MEDS: FIBERCON 1250 MG PO (09:26)
[2024-07-09] MEDS: SENOKOT 17.2 MG PO (09:27)
[2024-07-09] MEDS: VITAMIN B-12 1000 MCG PO (09:27)
[2024-07-09] MEDS: COLACE 100 MG PO (09:28)
[2024-07-09] MEDS: ZESTRIL 10 MG PO (09:28)
[2024-07-09] MEDS: FOLVITE 1 MG PO (09:35)
[2024-07-09] MEDS: ASPIRIN 325 MG PO (09:35)
[2024-07-09] MEDS: OSCAL 500 + D 500 MG PO (09:35)
[2024-07-09] MEDS: DELTASONE 2 MG PO (09:35)
[2024-07-09] MEDS: DELTASONE 5 MG PO (09:36)
[2024-07-09] MEDS: LIPITOR 10 MG PO (09:36)
[2024-07-09] MEDS: THERAGRAN 1 TABLET PO (09:36)
--- NOTE | 2024-07-09 10:02 | W.PN.HOSP.TC ---
Today's Communication/Plan
-
D/C to SNF
Assessment / Plan
Assessment / Plan
84 year old female POD #1 s/p R Hip Gamma Nail
1. Acute R Hip Fx
- POD#4 R Hip Gamma Nail
- Pain Control
- PT/OT as cornelio; recommended acute rehab; insurance denied, d/c to SNF
2. Acute Blood Loss Anemia 2/2 Orthopedic Procedure
- Hb 12.5 (pre-op) --> 10.0 --> 8.7 --> 8.2 --> 8.7today; patient being discharged to SNF; recheck CBC in 2-3 days
- Trending upward, Asymptomatic
3. Leukocytosis
- Improving
- Likely reactive/stress related
- Resolved.
4. Polymyalgia Rheumatica
- Continue Home Meds
- Consider stress dose steroids for hypotension
5. HTN
- Continue Home Meds
6. HLD
- Continue Home Meds
7. DVT PPx
- ASA 325 x 4 weeks per ortho
- After 4 weeks, resume original 81mg dose
Anticipated Discharge: Today
Subjective/Interval History
-
Date of Service: July 09, 2024
No acute complaints. Awaiting insurance approval for [facility] s/p denial for acute rehab.
Objective Data
-
Labs:
Laboratory Results
07/09/24
08:05
WBC 11.3 H
Hgb 8.7 L
Hct 27.3 L
Plt Count Pending
Vital Signs:
Vital Signs
Temp Pulse Resp BP Pulse Ox
97.8 F 89 16 111/50 99
07/09/24 07:45 07/09/24 07:45 07/09/24 07:45 07/09/24 09:28 07/09/24 07:45
I&O
07/08/24 07/09/24 07/10/24
06:59 06:59 06:59
Intake Total 1919 480 / 480 480 / 480
Balance 1919 480 / 480 480 / 480
Review of Systems
-
History Source: Patient
All other systems: Reviewed and negative
Musculoskeletal: Reports Joint Pain
Physical Exam
-
General: Well Developed and Well Nourished
HEENT: Normocephalic and Atraumatic
Respiratory: Clear to Auscultation
Cardiac: Regular Rhythm
Neuro: Awake and Alert
Psych: Calm
Data Reviewed
-
Labs: Labs Reviewed by me
[2024-07-09 11:07] LABS: Mean Platelet Volume 10.6 fL (7.4-10.4); Platelet Count 179 10^3/uL (130-400)
--- NOTE | 2024-07-09 15:03 | W.DCSUMMARY ---
Addendum entered and electronically signed by Alphonso Shaffer MD 07/10/24 08:14:
Read, reviewed, and agree. See same day progress note for additional details.
Original Note:
Discharge Summary
Discharge Data
Date of Admission: 07/05/24
Date of Discharge: 07/09/24
-
Pending Results: No
Hospital Course
Ms. Wiggins is an 84-year-old female with a past medical history significant for hypertension, hyperlipidemia, peripheral arterial disease status post PCI, stress incontinence status post recent sling procedure, interstitial cystitis, and bladder
prolapse who presented to the emergency department at [facility] on 07/05/2024 for a mechanical fall. Patient stated that she woke up that morning from her bed to go use the bathroom when she tripped and fell injuring the back of her head
and right hip/thigh. Patient stated that she was not able to pull herself back up and had to call her family for help. In the emergency department the patient was complaining of severe right hip pain that was radiating into her groin and inability
to move her right leg. She denied any loss of consciousness or other preceding symptoms and did not have a postictal phase. She stated that she was awake and alert during the entire fall and after the fall. Pertinent negatives included chest
pain, palpitations, shortness of breath, loss of consciousness, orthopnea, paroxysmal nocturnal dyspnea, and/or bowel/bladder incontinence.
In the emergency department, the patient appeared to be no apparent distress. Her cardiovascular and respiratory exams were normal. In addition her neurological exam was benign with no motor deficits. However, the emergency physician noted right
hip edema, without bruising or ecchymosis, and a right leg that was externally rotated and severely limited in range of motion. Laboratory studies revealed an elevated white blood cell count of 14.8 K while vital signs were normal and stable. A
right hip x-ray was obtained which displayed a displaced intertrochanteric fracture of the right hip. Because of the nature of the injury, rib x-rays were also obtained which showed no radiographic evidence of displaced rib fractures. Cervical
spine CT revealed moderate multilevel degenerative disc disease, however there were no findings of traumatic malalignment or compression deformity. Head CT also failed to find any acute intracranial abnormalities or abnormalities within the
cervical spine. The patient was admitted to the hospitalist service that afternoon with orthopedic consultation. The orthopedic team's plan was to proceed with a right hip cephalomedullary nail. This procedure was performed successfully, and the
patient was to remain in the hospital for observation.
Following the procedure, the patient was given pain control medications, and followed for acute blood loss anemia. The patient's blood counts stabilized over the coming days, and her pain was controlled with opioid and nonopioid medications. The
patient also received physical therapy as well as Occupational Therapy, and while it was suggested that the patient continue on to acute rehab, her insurance denied this request, and the patient was to be discharged to a shelter facility to
continue her rehabilitation.
The patient was discharged on 07/09/2024. It is recommended that the patient continue to follow up with physical therapy as well as Occupational Therapy, and have a repeat complete blood count in 2 to 3 days to follow resolution of acute blood loss
anemia secondary to the orthopedic procedure.
Discharge Plan
-
Patient Disposition: Skilled Nursing/SNF
Discharge Diagnosis/Procedures: Acute Right Hip Fracture
Acute Blood Loss Anemia Secondary to Orthopedic Procedure
Condition: Fair
Diet: Regular
Activity: With assistance and As tolerated
Additional Activity: Partial weight bearing of the RLE with use of walker for assistance.
Blood Work: Repeat CBC in 2-3 days.
Referrals:
Ramy Garcia MD [Family Provider] - in less than 1 week
Prescriptions:
New
aspirin 325 mg Tablet
325 mg PO DAILY Qty: 30 0RF
acetaminophen 325 mg Tablet
650 mg PO Q4HWA Qty: 30 0RF
Continued
prednisone 5 mg Tablet
5 mg PO DAILY
Rx Instructions:
take with 2 1mg tabs for total of 7mg
methenamine hippurate 1 gram Tablet
1 g PO BID
methotrexate sodium 2.5 mg Tablet
7.5 mg PO WE@0800,1700
simvastatin 20 mg Tablet
20 mg PO DAILY
lisinopril 10 mg Tablet
10 mg PO DAILY
sertraline 25 mg Tablet
25 mg PO HS
folic acid 1 mg Tablet
1 mg PO DAILY
calcium citrate-vitamin D3 250 mg-5 mcg (200 unit) Tablet
1 tab PO BID
Systane Complete 0.6 % Drops
1 drp BOTH EYES BID PRN (Reason: dry eyes)
Hair, Skin, Nails with Biotin 7.5-7.5-1,250 mg-unit-mcg Tablet,Chewable
1 tab PO TID
Fiber Gummies 2 gram Tablet,Chewable
4 g PO DAILY
cyanocobalamin (vitamin B-12) 1,000 mcg Tablet
1,000 mcg PO DAILY
prednisone 1 mg Tablet
2 mg PO DAILY
Rx Instructions:
take with 5 mg for total of 7mg
estradiol 0.01 % (0.1 mg/gram) Cream
1 appful VAGINAL SUTH
Centrum Women 18-400 mg-mcg Tablet
1 tab PO DAILY
Held
aspirin 81 mg Capsule
81 mg PO DAILY
Hold Instructions: Resume on 08/04/24. Take 1 aspirin 325 mg capsule a day, until August 03 for DVT prophylaxis. Starting August 04, continue regular dose of 1 aspirin 81 mg capsule a day.
Discharge Orders:
Discharge Patient (As Directed); Ordered 07/09/24
Ordered By: Bright Self
Discharge Date and Time
Discharge Date/Time: 07/09/24 11:32
Print Language: GAMBIAN
== END 2024-07-09 11:32 | DRG 481 ==
LOC: 2 SOUTH 12:13
PROVIDERS: Physician Assistant Surgical; Student in an Organized Health Care Education/Training Program; ADMITTING PHYSICIAN Internal Medicine; CONSULT PHYSICIAN Physical Medicine & Rehabilitation; CONSULT PHYSICIAN Specialist; EMERGENCY PHYSICIAN Emergency Medicine; FAMILY PHYSICIAN Family Medicine
PROC: 0QS606Z Reposition Right Upper Femur with Intramedullary Internal Fixation Device, Open Approach (ICD-10-PCS; 2024-07-05)
DX: S72.141A Displaced intertrochanteric fracture of right femur, initial encounter for closed fracture (principal); D62 Acute posthemorrhagic anemia; F41.9 Anxiety disorder, unspecified; H26.9 Unspecified cataract; I10 Essential (primary) hypertension; N39.3 Stress incontinence (female) (male); E78.00 Pure hypercholesterolemia, unspecified; Z98.61 Coronary angioplasty status; N30.10 Interstitial cystitis (chronic) without hematuria; N81.10 Cystocele, unspecified; M35.3 Polymyalgia rheumatica; Z79.82 Long term (current) use of aspirin; Z75.1 Person awaiting admission to adequate facility elsewhere
CPT/HCPCS: 70450; 71110; 72125; 73502; 76000; 80048; 80053; 85014; 85018; 85025; 85027; 85610; 85730; 86850; 86900; 86901; 93005; 96374; 96375; 97110; 97116; 97163; 97167; 97535; 99285; C1713; C1769

== ENCOUNTER → 2024-07-12 11:22 | Outpatient (REF) | payer MEDICARE, SELFPAY ==
[2024-07-12 12:18] LABS: Hematocrit 26.8 % (37.0-47.0); Hemoglobin 8.6 g/dL (12.0-16.0); Mean Corp Hgb Conc. 32.1 g/dL (33.0-37.0); Mean Corpuscular Hgb 29.6 pg (27.0-31.0); Mean Corpuscular Volume 92.1 fL (81.0-99.0); Mean Platelet Volume 10.2 fL (7.4-10.4); Platelet Count 241 10^3/uL (130-400); Red Blood Cell Count 2.91 10^6/uL (4.20-5.40); Red Cell Dist. Width 18.5 % (11.5-14.5); White Blood Cell Count 11.9 10^3/uL (4.8-10.8)
== END ==
LOC: OLABN 11:22
PROVIDERS: ATTENDING PHYSICIAN Student in an Organized Health Care Education/Training Program
DX: I10 Essential (primary) hypertension (principal); D64.9 Anemia, unspecified
CPT/HCPCS: 36415; 85027

== ENCOUNTER 2024-09-22 15:54 | Outpatient (RCR) | payer MEDICARE, SELFPAY | END 2024-09-22 23:59 | disposition home or self-care (01) | LOC: RPT 15:54 | PROVIDERS: ATTENDING PHYSICIAN Physician Assistant Surgical; FAMILY PHYSICIAN Family Medicine | DX: Z47.89 Encounter for other orthopedic aftercare (principal); S72.141D Displaced intertrochanteric fracture of right femur, subsequent encounter for closed fracture with routine healing; Z73.6 Limitation of activities due to disability; R26.89 Other abnormalities of gait and mobility; R26.2 Difficulty in walking, not elsewhere classified; M62.81 Muscle weakness (generalized) | CPT/HCPCS: 97010; 97110; 97112; 97116; 97140; 97163; 97530 ==

== ENCOUNTER 2024-10-21 13:00 | Outpatient (RCR) | payer MEDICARE, SELFPAY | END 2024-10-21 23:59 | disposition home or self-care (01) | LOC: RPT 13:00 | PROVIDERS: ATTENDING PHYSICIAN Physician Assistant Surgical; FAMILY PHYSICIAN Family Medicine | DX: Z47.89 Encounter for other orthopedic aftercare (principal); S72.141D Displaced intertrochanteric fracture of right femur, subsequent encounter for closed fracture with routine healing; X58.XXXD Exposure to other specified factors, subsequent encounter; Z73.6 Limitation of activities due to disability; R26.89 Other abnormalities of gait and mobility; R26.2 Difficulty in walking, not elsewhere classified; M62.81 Muscle weakness (generalized); W01.0XXD Fall on same level from slipping, tripping and stumbling without subsequent striking against object, subsequent encounter | CPT/HCPCS: 97010; 97110; 97140; 97530 ==

== ENCOUNTER 2024-11-11 12:54 | Outpatient (RCR) | payer MEDICARE, SELFPAY | END 2024-11-11 23:59 | disposition home or self-care (01) | LOC: RPT 12:54 | PROVIDERS: ATTENDING PHYSICIAN Physician Assistant Surgical; FAMILY PHYSICIAN Family Medicine | DX: Z47.89 Encounter for other orthopedic aftercare (principal); S72.141D Displaced intertrochanteric fracture of right femur, subsequent encounter for closed fracture with routine healing; W01.0XXD Fall on same level from slipping, tripping and stumbling without subsequent striking against object, subsequent encounter; M62.81 Muscle weakness (generalized); R26.2 Difficulty in walking, not elsewhere classified; R26.89 Other abnormalities of gait and mobility; Z73.6 Limitation of activities due to disability; X58.XXXD Exposure to other specified factors, subsequent encounter | CPT/HCPCS: 97110; 97112; 97530 ==

== ENCOUNTER 2024-12-14 13:20 | Outpatient (RCR) | payer MEDICARE, SELFPAY | END 2024-12-14 23:59 | disposition home or self-care (01) | LOC: RPT 13:20 | PROVIDERS: ATTENDING PHYSICIAN Physician Assistant Surgical; FAMILY PHYSICIAN Family Medicine | DX: S72.141D Displaced intertrochanteric fracture of right femur, subsequent encounter for closed fracture with routine healing (principal); Z47.89 Encounter for other orthopedic aftercare (principal); M62.81 Muscle weakness (generalized); W01.0XXD Fall on same level from slipping, tripping and stumbling without subsequent striking against object, subsequent encounter; R26.89 Other abnormalities of gait and mobility; R26.2 Difficulty in walking, not elsewhere classified; Z73.6 Limitation of activities due to disability; X58.XXXD Exposure to other specified factors, subsequent encounter | CPT/HCPCS: 97110; 97530 ==

== ENCOUNTER → 2025-03-07 12:50 | Outpatient (REF) | payer MEDICARE, SELFPAY | LOC: HWRAD 12:50 | PROVIDERS: ATTENDING PHYSICIAN Internal Medicine; FAMILY PHYSICIAN Family Medicine | DX: M81.0 Age-related osteoporosis without current pathological fracture (principal) | CPT/HCPCS: 77080 ==

== ENCOUNTER → 2025-05-05 11:03 | Outpatient (REF) | payer MEDICARE, SELFPAY | LOC: REG 11:03 | PROVIDERS: ATTENDING PHYSICIAN Internal Medicine; FAMILY PHYSICIAN Family Medicine | DX: M79.605 Pain in left leg (principal) | CPT/HCPCS: 73552 ==

== ENCOUNTER → 2025-05-11 14:34 | Outpatient (REF) | payer MEDICARE, SELFPAY | LOC: RAD 14:34 | PROVIDERS: ATTENDING PHYSICIAN Family Medicine | DX: M79.89 Other specified soft tissue disorders (principal) | CPT/HCPCS: 93970 ==